=== PATIENT | male | born 1960 | race Caucasian/White ===

== ENCOUNTER → 2018-03-19 | Outpatient (CLI) | payer BC ==
--- NOTE | 2018-03-19 15:53 | RADIOLOGY REPORT (SQ) ---
EXAM DESCRIPTION: KNEE LEFT 3 VIEWS COMPLETED DATE/TIME: 03/19/2018 2:29 pm REASON FOR STUDY: BILATERAL PRIMARY OSTEOARTHRITIS KNEES. MUSCLE TWITCHING M17.0 BILATERAL PRIMARY OSTEOARTHRITIS OF KNEE COMPARISON: None. NUMBER OF VIEWS: Three views. TECHNIQUE: Standing AP, lateral, sunrise view radiographic images acquired of the left knee. LIMITATIONS: None. FINDINGS: MINERALIZATION: Normal. BONES: No acute fracture or dislocation. No worrisome bone lesions. JOINT: Medial compartment joint space narrowing. SOFT TISSUES: No soft tissue swelling. No radio-opaque foreign body. OTHER: No other significant finding. IMPRESSION: Medial compartment joint space narrowing. No significant osteophytes. TECHNICAL DOCUMENTATION: JOB ID: [id number] [email or web address]- All Rights Reserved Reading location - IP/workstation name: [email or web address]
--- NOTE | 2018-03-19 15:54 | RADIOLOGY REPORT (SQ) ---
EXAM DESCRIPTION: KNEE RIGHT 3 VIEWS COMPLETED DATE/TIME: 03/19/2018 2:29 pm REASON FOR STUDY: BILATERAL PRIMARY OSTEOARTHRITIS KNEES. MUSCLE TWITCHING M17.0 BILATERAL PRIMARY OSTEOARTHRITIS OF KNEE COMPARISON: None. NUMBER OF VIEWS: Three views TECHNIQUE: AP standing, lateral, sunrise radiographic images acquired of the right knee. LIMITATIONS: None. FINDINGS: MINERALIZATION: Normal. BONES: No acute fracture or dislocation. No worrisome bone lesions. JOINT: Medial compartment joint space narrowing. SOFT TISSUES: No soft tissue swelling. No radio-opaque foreign body. OTHER: No other significant finding. IMPRESSION: Medial compartment degenerative changes. TECHNICAL DOCUMENTATION: JOB ID: [id number] [email or web address]- All Rights Reserved Reading location - IP/workstation name: [email or web address]
--- NOTE | 2018-03-19 15:55 | RADIOLOGY REPORT (SQ) ---
EXAM DESCRIPTION: L SPINE 2 VIEWS COMPLETED DATE/TIME: 03/19/2018 2:29 pm REASON FOR STUDY: BILATERAL PRIMARY OSTEOARTHRITIS KNEES. MUSCLE TWITCHING M17.0 BILATERAL PRIMARY OSTEOARTHRITIS OF KNEE COMPARISON: None. NUMBER OF VIEWS: Two views. TECHNIQUE: AP and lateral radiographic images acquired of the lumbar spine. LIMITATIONS: None. FINDINGS: MINERALIZATION: Normal. SEGMENTATION: Normal. No transitional anatomy. ALIGNMENT: Normal. VERTEBRAE: Maintained height. No fracture or worrisome bone lesion. DISCS: No significant disc space narrowing. Scattered small osteophytes. POSTERIOR ELEMENTS: Pedicles and facets are intact. No pars defect or posterior arch defects. HARDWARE: None in the spine. PARASPINAL SOFT TISSUES: Normal. PELVIS: Intact as visualized. No fractures or worrisome bone lesions. SI joints intact. OTHER: No other significant finding. IMPRESSION: Minimal degenerative changes. TECHNICAL DOCUMENTATION: JOB ID: [id number] [employer]- All Rights Reserved Reading location - IP/workstation name: [email or web address]
== END ==
LOC: RAD 13:39
PROVIDERS: ATTEND Internal Medicine Geriatric Medicine
DX: M62.831 Muscle spasm of calf (principal); M17.0 Bilateral primary osteoarthritis of knee
CPT/HCPCS: 72100

== ENCOUNTER 2018-10-11 08:20 | Day surgery (SDC) | payer BC ==
[~2018-10-11 08:20] MED LIST: DIPHENHYDRAMINE HCL 50 MG/ML VIAL ONE; EPINEPHRINE INJ 1 MG/10 ML DISP.SYRIN ONE; FLUMAZENIL INJ 0.5 MG/5 ML VIAL ONE; GLUCAGON,HUMAN RECOMB 1 MG INJ ONE; NALOXONE HCL INJ/PF 0.4 MG/1 ML SDV ONE; ONDANSETRON HCL INJ/PF 4 MG/2 ML SDV ONE
[2018-10-11] MEDS: MIDAZOLAM 2 MG/2 ML INJ ONE ×2 (10:23→10:31)
[2018-10-11] MEDS: FENTANYL CITRATE INJ/PF 100 MCG/2 ML AMPUL ONE ×3 (10:25→10:41)
--- NOTE | 2018-10-11 11:21 | Operative Report ---
Nonrecallable Operative Report PREOPERATIVE DIAGNOSIS: screening colo POSTOPERATIVE DIAGNOSIS: screening colo OPERATION: colonoscopy SURGEON: ERIN GONZALEZ ANESTHESIA: Moderate Sedation TISSUE REMOVED OR ALTERED: polyps x2 biopsy. at 65 cm and in cecum COMPLICATIONS: none ESTIMATED BLOOD LOSS: min INTRAOPERATIVE FINDINGS: diverticulosis through ascending colon and transvers colon. min tics in sigmoid PROCEDURE: colonoscopy and biopsy
[2018-10-11 11:53] VITALS: BP 131/77
--- NOTE | 2018-10-11 13:58 | OPERATIVE REPORT E ---
Operative Report NAME: GRAZYNA PEREZ : 1960 AGE: 58Y DATE OF SURGERY: ROOM: PREOPERATIVE DIAGNOSIS: Screening colonoscopy. POSTOPERATIVE DIAGNOSIS: Screening colonoscopy. OPERATIVE PROCEDURE: Colonoscopy under conscious sedation. SURGEON: ERIN GONZALEZ M.D. INDICATIONS FOR PROCEDURE: This is a 58-year-old male with previous history of colonoscopy approximately 13 years ago where he had a number of cecal polyps that were either biopsied or removed. He now returns for a routine screening colonoscopy. PROCEDURE: After appropriate timeout the patient was given IV sedation using Versed and Fentanyl, approximately 2 mg of Versed initially were given, a total of 4 were given throughout the procedure, and 50 mcg of Fentanyl. The patient was then placed in a left lateral decubitus position and after appropriate sedation the Olympus colonoscope was inserted into the rectum to the sigmoid colon. It then traversed up the descending colon to the splenic flexure, the transverse colon to the hepatic flexure, and down to the cecum. It was a relatively easy manipulation. The patient had an adequate prep. Upon reaching the cecum the ileocecal valve was identified as was the appendiceal orifice, and there was 1 small polyp on the ileocecal valve that was biopsied. It appeared to be a hyperplastic polyp. Then we slowly withdrew the scope over the course of 5 to 8 minutes, visualizing the ascending colon which appeared to be normal as was the hepatic flexure. In the transverse colon there were a number of diverticulum, but there was no evidence of any polyps as we traversed through the transverse colon past the splenic flexure that appeared to be normal. The descending colon also had a number of diverticula and then at 65 cm there was a second hyperplastic polyp, which was biopsied. There were a few descending colon diverticula, but very few if any sigmoid colon diverticula. As we exited the colon there were a number of small hemorrhoids that showed no evidence of any bleeding. The patient tolerated the procedure well. Intraoperative findings were 2 polyps, one at 65 cm, one in the cecum, both biopsied, and diffuse diverticulosis. The scope was removed and the patient went to recovery in stable condition. DICTATING PHYSICIAN: ERIN GONZAELZ M.D. [id number] PHY#: [id number] ID: [id number] JOB#: [id number] ACCT: [id number] cc:ERIN GONZALEZ M.D. >
--- NOTE | 2018-10-13 13:24 | OPERATIVE REPORT E ---
Operative Report NAME: GRAZYNA PEREZ : 1960 AGE: 58Y DATE OF SURGERY: 10/11/2018 ROOM: ADDENDUM: The biopsy performed was a cold forceps biopsy. DICTATING PHYSICIAN: ERIN GONZALEZ M.D. [id number] PHY#: [id number] ID: [id number] JOB#: [id number] ACCT: [id number] cc:ERIN GONZALEZ M.D. >
== END 2018-10-11 11:55 | disposition home or self-care (01) ==
LOC: END 08:20
PROVIDERS: ATTEND Surgery
DX: Z12.11 Encounter for screening for malignant neoplasm of colon (principal); K57.30 Diverticulosis of large intestine without perforation or abscess without bleeding; D12.0 Benign neoplasm of cecum; Z86.010 Personal history of colon polyps; E11.9 Type 2 diabetes mellitus without complications; I10 Essential (primary) hypertension; E78.5 Hyperlipidemia, unspecified; Z79.84 Long term (current) use of oral hypoglycemic drugs; Z79.899 Other long term (current) drug therapy; Z01.818 Encounter for other preprocedural examination
CPT/HCPCS: 45380; 82962; 88305 ×2; J2250; J3010; J0171; J1200; J1610; J2310; J2405; J3490

== ENCOUNTER 2019-07-19 22:10 | Inpatient (IN) | payer SELFPAY ==
--- NOTE | 2019-07-19 22:55 | ER Document Report ---
ED General - General Stated Complaint: LEFT SIDE PAIN/VOMITING/DIARRHEA Time Seen by Provider: 07/19/19 22:55 Primary Care Provider: GORDO GANDHI MD [Primary Care Provider] - Follow up as needed TRAVEL OUTSIDE OF THE [place] IN LAST 30 DAYS: No - HPI Patient complains to provider of: abd pain Notes: 58 y/o presenting to ED for evaluation of RLQ abdominal pain worsening over a 2 day time period with some chills but w/o fever he has had nausea w/o vomiting he had 2 loose BM's yesterday but no persistent diarrhea no back pain no testicle pain no blood in urine or dysuria no blood in stool - Related Data Allergies/Adverse Reactions: No Known Allergies Allergy (Verified 10/11/18 08:34) Home Medications: metformin. glimiperide,. phenofibrine Past Medical History - Social History Smoking Status: Never Smoker Chew tobacco use (# tins/day): No Frequency of alcohol use: None Drug Abuse: None Family History: Reviewed & Not Pertinent Patient has suicidal ideation: No Patient has homicidal ideation: No - Past Medical History Cardiac Medical History: Denies: Hx Coronary Artery Disease, Hx Heart Attack, Hx Hypertension Pulmonary Medical History: Denies: Hx Asthma, Hx Bronchitis, Hx COPD, Hx Pneumonia Neurological Medical History: Denies: Hx Cerebrovascular Accident, Hx Seizures Musculoskeletal Medical History: Denies Hx Arthritis - Immunizations Hx Diphtheria, Pertussis, Tetanus Vaccination: Yes Review of Systems - Review of Systems Constitutional: Chills EENT: No symptoms reported Cardiovascular: No symptoms reported Respiratory: No symptoms reported Gastrointestinal: Abdominal pain, Nausea. denies: Vomiting Genitourinary: No symptoms reported Male Genitourinary: No symptoms reported Musculoskeletal: No symptoms reported Skin: No symptoms reported Hematologic/Lymphatic: No symptoms reported Neurological/Psychological: No symptoms reported Physical Exam - Vital signs Vitals: Temp Pulse Resp BP Pulse Ox 98.1 F 81 20 142/86 H 98 07/19/19 22:27 07/19/19 22:27 07/19/19 22:27 07/19/19 22:27 07/19/19 22:27 Interpretation: Normal - General General appearance: Appears well, Alert - HEENT Head: Normocephalic, Atraumatic Eyes: Normal Pupils: PERRL - Respiratory Respiratory status: No respiratory distress Chest status: Nontender Breath sounds: Normal Chest palpation: Normal - Cardiovascular Rhythm: Regular Heart sounds: Normal auscultation Murmur: No - Abdominal Inspection: Normal Distension: No distension Bowel sounds: Normal Tenderness: McBurney's point, Guarding Organomegaly: No organomegaly - Back Back: Normal, Nontender - Extremities General upper extremity: Normal inspection, Nontender, Normal color, Normal ROM, Normal temperature General lower extremity: Normal inspection, Nontender, Normal color, Normal ROM, Normal temperature, Normal weight bearing. No: Terri's sign - Neurological Neuro grossly intact: Yes Cognition: Normal Orientation: AAOx4 [place] Coma Scale Eye Opening: Spontaneous Vania Coma Scale Verbal: Oriented [place] Coma Scale Motor: Obeys Commands [place] Coma Scale Total: 15 Speech: Normal Motor strength normal: LUE, RUE, LLE, RLE Sensory: Normal - Psychological Associated symptoms: Normal affect, Normal mood - Skin Skin Temperature: Warm Skin Moisture: Dry Skin Color: Normal Course - Re-evaluation Re-evalutation: 07/20/19 00:59 RLQ pain on exam [address] obtained to eval for appendicits 07/20/19 01:13 CT w/ free air - perf appendix vs diverticula zosyn ordered surgery consulted - Vital Signs Vital signs: Temp Pulse Resp BP Pulse Ox 99.5 F 71 22 H 177/88 H 91 L 07/19/19 22:55 07/19/19 22:55 07/19/19 22:55 07/20/19 01:01 07/20/19 01:01 - Laboratory Result Diagrams: 07/19/19 23:08 07/19/19 23:08 Laboratory results interpreted by me: 07/19/19 07/19/19 07/19/19 23:08 23:08 23:08 Plt Count 93 L Lymph % (Auto) 7.5 L Seg Neutrophils % 84.1 H Sodium 136.3 L BUN 22 H Creatinine 1.54 H Est GFR ( Amer) 56 L Est GFR (MDRD) Non-Af 47 L Glucose 349 H Lactic Acid 2.5 H Total Bilirubin 4.0 H Direct Bilirubin 2.5 H AST 157 H Urine Protein Urine Glucose (UA) Urine Blood Urine Urobilinogen 07/19/19 23:18 Plt Count Lymph % (Auto) Seg Neutrophils % Sodium BUN Creatinine Est GFR ( Amer) Est GFR (MDRD) Non-Af Glucose Lactic Acid Total Bilirubin Direct Bilirubin AST Urine Protein 100 H Urine Glucose (UA) >=500 H Urine Blood SMALL H Urine Urobilinogen 4.0 H - Diagnostic Test Radiology reviewed: Image reviewed, Reports reviewed Critical Care Note - Critical Care Note Total time excluding time spent on procedures (mins): 36 Comments: perforated viscus in abdomen. impending sepsis. surgical consultation Discharge - Discharge Clinical Impression: Perforated abdominal viscus Condition: Stable Disposition: ADMITTED INPATIENT Admitting Provider: Surgicalist Unit Admitted: OR Referrals: GORDO GANDHI MD [Primary Care Provider] - Follow up as needed
[2019-07-19] MEDS ORDERED: NORMAL SALINE 1000 ML 1,000 ML IV ONE (23:08)
[2019-07-19] MEDS ORDERED: MORPHINE SULFATE 10 MG/ML INJ IV ONE (23:19)
[2019-07-19] MEDS ORDERED: ONDANSETRON HCL INJ/PF 4 MG/2 ML SDV IV ONE (23:19)
[2019-07-19 23:32] LABS: APPEARANCE,URINE CLEAR; BILIRUBIN,URINE NEGATIVE (NEGATIVE); COLOR,URINE YELLOW; GLUCOSE, URINE >=500 mg/dL (NEGATIVE); KETONES,URINE NEGATIVE (NEGATIVE); LEUKOCYTE ESTERASE,URINE NEGATIVE (NEGATIVE); NITRITE,URINE NEGATIVE (NEGATIVE); PROTEIN,URINE 100 mg/dL (NEGATIVE); URINE SPECIFIC GRAVITY 1.022
[2019-07-19 23:35] LABS: ABSOLUTE EOSINOPHILS # (AUTO) 0.1 10^3/uL (0.0-0.6); ABSOLUTE LYMPHOCYTES (AUTO) 0.6 10^3/uL (0.5-4.7); ABSOLUTE MONOCYTES (AUTO) 0.5 10^3/uL (0.1-1.4); ABSOLUTE NEUT (AUTO) 6.6 10^3/uL (1.7-8.2); BASOPHILS % (AUTO) 0.5 % (0-2); EOSINOPHILS % (AUTO) 1.1 % (0-6); HEMOGLOBIN 16.2 g/dL (13.5-17.0); LYMPHOCYTES % (AUTO) 7.5 % (13-45); MEAN CORPUSCULAR HEMOGLOBIN 31.6 pg (27.0-33.4); MEAN CORPUSCULAR HGB CONC 35.2 g/dL (32.0-36.0); MEAN CORPUSCULAR VOLUME 90 fl (80-97); MONOCYTES % (AUTO) 6.8 % (3-13); RED BLOOD COUNT 5.12 10^6/uL (4.35-5.55); SEGMENTED NEUTROPHILS % (AUTO) 84.1 % (42-78); TOTAL CELLS COUNTED % (AUTO) 100 %; WHITE BLOOD COUNT 7.8 10^3/uL (4.0-10.5)
[2019-07-19 23:44] LABS: ALBUMIN 4.2 g/dL (3.5-5.0); ALKALINE PHOSPHATASE 119 U/L (38-126); ANION GAP 13 (5-19); ASPARTATE AMINO TRANSFERASE 157 U/L (17-59); BILIRUBIN,DIRECT 2.5 mg/dL (0.0-0.4); BLOOD UREA NITROGEN 22 mg/dL (7-20); CALCIUM 9.7 mg/dL (8.4-10.2); CARBON DIOXIDE 24 mmol/L (22-30); CHLORIDE 99 mmol/L (98-107); GLUCOSE 349 mg/dL (75-110); POTASSIUM 4.3 mmol/L (3.6-5.0); TOTAL PROTEIN 6.9 g/dL (6.3-8.2)
[2019-07-19 23:52] LABS: PLATELET COUNT 93 10^3/uL (150-450)
[2019-07-20] MEDS ORDERED: NORMAL SALINE 1000 ML 1,000 ML IV ONE (00:04)
[2019-07-20] MEDS ORDERED: MORPHINE SULFATE 10 MG/ML INJ IV ONE (00:58)
[2019-07-20] MEDS ORDERED: PIPERACILLIN/TAZOBACTAM 3.375 GM VIAL IV ONE (01:13)
--- NOTE | 2019-07-20 01:20 | RADIOLOGY REPORT (SQ) ---
EXAM: CT abdomen and pelvis with IV contrast CLINICAL DATA: 58-year-old male with right lower quadrant abdominal pain TECHNICAL DATA: Axial CT imaging of the abdomen and pelvis was performed following the administration of intravenous contrast.. Sagittal and coronal reconstructed images were then performed. The CT study is performed according to ALARA (as low as reasonably achievable) or ALARA/IMAGE GENTLY, with automatic adjustment of mA and/or kV according to patient size. Performed on: 07/20/2019 at 12:36 AM. Comparison: None FINDINGS: Lung bases: The lung bases are clear. There is minimal bibasilar atelectasis and/or fibrosis. Liver: The liver is mildly enlarged and measures 20 cm in craniocaudal dimension. No focal hepatic abnormalities are identified. Liver attenuation is within normal limits. Spleen: The spleen is mildly enlarged and measures 13.4 cm in craniocaudal dimension. No focal splenic abnormalities are identified. Gallbladder and bile duct: The gallbladder is well distended and unremarkable. There is no biliary ductal dilatation. Pancreas: The pancreas is grossly normal in size and configuration. Adrenal Glands:The adrenal glands are normal in size and configuration. Kidneys:The kidneys are normal in size and configuration. There is no evidence of hydronephrosis. There is no evidence of nephrolithiasis. There are several tiny renal hypodensities bilaterally likely representing incidental renal cysts. Stomach: The stomach is moderately distended with fluid. There is a small hiatal hernia. Bowel:The bowel gas pattern is non specific and non obstructive. There is scattered colonic diverticulosis. There is pericolonic inflammation in the right lower quadrant with surrounding edema. There appears to be air within the appendix which appears dilated and partially fluid-filled. Findings could reflect a perforated appendix or perforated diverticulitis. Appendix: See above Free air: There is pneumoperitoneum. Free fluid: There is a small amount of free fluid in the pelvis with extensive mesenteric edema in the right lower quadrant. Vasculature: The aorta is normal in caliber and contour. The inferior vena cava is grossly unremarkable. Lymphadenopathy: No pathologic lymphadenopathy is identified. Bladder: The bladder is well distended and smooth in contour. Reproductive: The prostate gland is grossly within normal limits. Bones: No acute osseous abnormalities are identified. Soft tissues: There are bilateral fat-containing inguinal hernias. There is a tiny fat-containing ventral umbilical hernia. IMPRESSION: 1. Pericolonic inflammation and edema in the right lower quadrant and pneumoperitoneum. Findings may reflect either a ruptured appendix or perforated diverticulitis. 2. Scattered colonic diverticulosis. 3. Hepatosplenomegaly. 4. Bilateral fat-containing inguinal hernias. These critical findings were discussed with Dr. Jordon Zarco on 07/20/2019 at 12:12 AM central time.
[2019-07-20 01:33] LABS: INTERNATIONAL RATION (INR) 1.05; PROTHROMBIN TIME 13.7 SEC (11.4-15.4)
[2019-07-20 01:34] LABS: PARTIAL THROMBOPLASTIN TIME 28.5 SEC (23.5-35.8)
[2019-07-20] MEDS ORDERED: ACETAMINOPHEN 0 MG/0 ML RTUPB IV ONE (02:11)
[2019-07-20] MEDS ORDERED: ACETAMINOPHEN 1,000 MG/100 ML RTUPB IV ONE (02:15)
--- NOTE | 2019-07-20 02:16 | PDOC H&P ---
History of Present Illness Admission Date/PCP: GORDO GANDHI Patient complains of: Right lower quadrant abdominal pain History of Present Illness: GRAZYNA PEREZ is a 58 year old male, with a history of hypertension, type 2 diabetes, mild fatty liver disease, status post liver biopsy with unspecified results 1 year ago, who presents to the emergency room with a 3-day history of right-sided lower abdominal pain, nausea vomiting x1 3 days ago, diarrhea with no blood identified. A CT scan of the abdomen pelvis was done revealing a possible appendicitis perforation versus right colon diverticulitis and perforation. He reports of feeling bloated for the past 3 days. His blood work also demonstrated hyperbilirubinemia with normal liver enzymes otherwise except for slight elevated AST. According to the patient, he volunteered for an experimental drug safety study 2 years ago and underwent a liver ultrasound which demonstrated an enlarged liver. As part of the study, he also underwent a liver biopsy which demonstrated fatty liver disease without other significant findings: Therefore, he was excluded from the study. He admits to occasional heavy drinking in the past, he denies blood transfusion, IV drug abuse, family history of liver disease, or past liver disease history. Past Medical History Cardiac Medical History: Denies: Coronary Artery Disease, Myocardial Infarction, Hypertension Pulmonary Medical History: Denies: Asthma, Bronchitis, Chronic Obstructive Pulmonary Disease (COPD), Pneumonia Neurological Medical History: Denies: Seizures Endocrine Medical History: Reports: Diabetes Mellitus Type 2 Musculoskeltal Medical History: Denies: Arthritis Hematology: Denies: Anemia Social History Smoking Status: Never Smoker Electronic Cigarette use?: No Family History Family History: Reviewed & Not Pertinent Parental Family History Reviewed: No Children Family History Reviewed: No Sibling(s) Family History Reviewed.: No Medication/Allergy Home Medications: Fenofibrate 54 mg PO QHS 10/10/18 Glimepiride [Amaryl 1 mg Tablet] 2 mg PO DAILY 10/10/18 Losartan Potassium [Cozaar 25 mg Tablet] 25 mg PO DAILY 10/10/18 Metformin HCl 4 tab PO DAILY 10/10/18 Multivit-Min/FA/Lycopen/Lutein [Centrum Silver Men Tablet] 1 each PO DAILY 10/11/18 Semaglutide [Ozempic] 0.25 mg SQ .QWEEKLY 10/11/18 Allergies/Adverse Reactions: No Known Allergies Allergy (Verified 10/11/18 08:34) Physical Exam Vital Signs: Temp Pulse Resp BP Pulse Ox 102.8 F H 71 22 H 177/88 H 91 L 07/20/19 01:37 07/19/19 22:55 07/19/19 22:55 07/20/19 01:01 07/20/19 01:01 Intake & Output 07/18/19 07/19/19 07/20/19 06:59 06:59 06:59 Intake Total 1999 Balance 1999 Weight 115 kg General appearance: PRESENT: cooperative, mild distress, obese Head exam: PRESENT: atraumatic Eye exam: PRESENT: EOMI, scleral icterus Mouth exam: PRESENT: neck supple Respiratory exam: PRESENT: clear to auscultation [place] Cardiovascular exam: PRESENT: RRR GI/Abdominal exam: PRESENT: distended, guarding - Right lower quadrant, hypo active bowel sounds, rebound - Right lower quadrant, rigid - Diffusely, tenderness - Right lower quadrant, localized with guarding and rebound Rectal exam: PRESENT: deferred Extremities exam: PRESENT: full ROM Musculoskeletal exam: PRESENT: full ROM Neurological exam: PRESENT: awake, oriented to person, oriented to place Psychiatric exam: PRESENT: appropriate affect Skin exam: PRESENT: warm Results Laboratory Results: 07/19/19 23:08 07/19/19 23:08 07/19/19 07/19/19 07/19/19 23:08 23:08 23:08 WBC 7.8 RBC 5.12 Hgb 16.2 Hct 46.0 MCV 90 MCH 31.6 MCHC 35.2 RDW 13.0 Plt Count 93 L Seg Neutrophils % 84.1 H Sodium 136.3 L Potassium 4.3 Chloride 99 Carbon Dioxide 24 Anion Gap 13 BUN 22 H Creatinine 1.54 H Est GFR ( Amer) 56 L Glucose 349 H Lactic Acid 2.5 H Calcium 9.7 Total Bilirubin 4.0 H AST 157 H Alkaline Phosphatase 119 Total Protein 6.9 Albumin 4.2 Lipase 77.1 Urine Color Urine Appearance Urine pH Ur Specific [place] Urine Protein Urine Glucose (UA) Urine Ketones Urine Blood Urine Nitrite Ur Leukocyte Esterase Urine WBC (Auto) Urine RBC (Auto) 07/19/19 23:18 WBC RBC Hgb Hct MCV MCH MCHC RDW Plt Count Seg Neutrophils % Sodium Potassium Chloride Carbon Dioxide Anion Gap BUN Creatinine Est GFR ( Amer) Glucose Lactic Acid Calcium Total Bilirubin AST Alkaline Phosphatase Total Protein Albumin Lipase Urine Color YELLOW Urine Appearance CLEAR Urine pH 5.0 Ur Specific [place] 1.022 Urine Protein 100 H Urine Glucose (UA) >=500 H Urine Ketones NEGATIVE Urine Blood SMALL H Urine Nitrite NEGATIVE Ur Leukocyte Esterase NEGATIVE Urine WBC (Auto) 1 Urine RBC (Auto) 0 Impressions: Abdomen/Pelvis CT 07/20/19 00:00 IMPRESSION: 1. Pericolonic inflammation and edema in the right lower quadrant and pneumoperitoneum. Findings may reflect either a ruptured appendix or perforated diverticulitis. 2. Scattered colonic diverticulosis. 3. Hepatosplenomegaly. 4. Bilateral fat-containing inguinal hernias. These critical findings were discussed with Dr. Jordon Zarco on 07/20/2019 at 12:12 AM central time. Assessment & Plan - Diagnosis (1) Right lower quadrant abdominal pain Is this a current diagnosis for this admission?: Yes (2) Acquired hyperbilirubinemia Is this a current diagnosis for this admission?: Yes (3) Perforated abdominal viscus Is this a current diagnosis for this admission?: Yes - Plan Summary Plan Summary: Assessment: Right lower quadrant pain for 3 days with nausea, vomiting, and diarrhea Patient has become febrile while in the emergency room, with a temperature of 102.8 Abdomen diffusely distended and point tenderness in the right lower quadrant CT scan abdomen pelvis significant for pneumoperitoneum with inflammatory changes right lower quadrant, perforated acute appendicitis versus acute perforated cecal diverticulitis according to the radiology report White blood cell count within the normal limits Slight elevation of BUN and creatinine (22/1.5, respectively) most likely reflecting dehydration Elevated lactic acid 2.5 as per sepsis Hyperbilirubinemia 4.0, unknown cause as per previous liver biopsy done 2 years ago (diagnosis of fatty liver) Also, hepatosplenomegaly identified on CAT scan without significant abdominal findings, normal gallbladder and liver ducts Plan: Aggressive IV hydration (total 3 L with normal saline given) IV antibiotics Zosyn Plan laparoscopy with possible appendectomy, possible open, possible laparotomy, possible resection Procedure, risks, complications, benefits, alternatives, discussed with the patient, he understands all the above, his questions answered, and he decides to proceed
[2019-07-20] MEDS ORDERED: FENTANYL CITRATE INJ/PF 250 MCG/5 ML AMPULE ONE (02:24)
[2019-07-20] MEDS ORDERED: MIDAZOLAM 2 MG/2 ML INJ ONE (02:24)
[2019-07-20] MEDS ORDERED: ONDANSETRON HCL INJ/PF 4 MG/2 ML SDV ONE (02:25)
[2019-07-20] MEDS ORDERED: MORPHINE SULFATE 10 MG/ML INJ ONE (02:25)
[2019-07-20] MEDS ORDERED: EPHEDRINE SULFATE INJ 50 MG/1 ML AMPULE ONE (02:25)
[2019-07-20] MEDS ORDERED: DEXAMETHASONE SOD PHOSPHATE INJ 4 MG/1 ML VIAL ONE (02:25)
[2019-07-20] MEDS ORDERED: PROPOFOL INJ 200 MG/20 ML VIAL IV ONE (02:25)
[2019-07-20] MEDS ORDERED: BUPIVACAINE HCL 0.5 % INJ/PF 30 ML SDV ONE (02:47)
[2019-07-20] MEDS ORDERED: SUGAMMADEX SODIUM 200 MG/2 ML SDV IV ONE (04:23)
[2019-07-20] MEDS ORDERED: ONDANSETRON HCL INJ/PF 4 MG/2 ML SDV IV PRN (04:44)
[2019-07-20] MEDS ORDERED: DIPHENHYDRAMINE HCL 50 MG/ML VIAL IV PRN (04:44)
[2019-07-20] MEDS ORDERED: OXYCODONE-ACETAMINOPHEN 5-325 MG TABLET PO PRN ×2 (04:44)
[2019-07-20] MEDS ORDERED: MEPERIDINE HCL/PF INJ 25 MG/1 ML DISP.SYRIN IV PRN (04:44)
[2019-07-20] MEDS ORDERED: PROMETHAZINE HCL INJ 25 MG/1 ML VIAL IV PRN ×2 (04:44)
[2019-07-20] MEDS ORDERED: FENTANYL CITRATE INJ/PF 100 MCG/2 ML AMPUL IV PRN ×4 (04:44→07:30)
[2019-07-20] MEDS ORDERED: MORPHINE SULFATE 10 MG/ML INJ IV PRN ×2 (04:44→05:57)
[2019-07-20] MEDS ORDERED: SUCCINYLCHOLINE CHLORIDE INJ 200 MG/10 ML VIAL ONE (05:00)
[2019-07-20] MEDS ORDERED: ROCURONIUM BROMIDE INJ 50 MG/5 ML VIAL IV ONE (05:00)
--- NOTE | 2019-07-20 05:50 | Operative Report ---
Operative Report DATE OF SURGERY: 07/20/19 PREOPERATIVE DIAGNOSIS: Pneumoperitoneum, peritonitis, leukocytosis POSTOPERATIVE DIAGNOSIS: Same, perforated gangrenous acute appendicitis OPERATION: Diagnostic laparoscopy, laparotomy, open appendectomy, application of wound VAC SURGEON: SARAH BERGMAN ANESTHESIA: GA - Loss 2 mL's of 0.5% Marcaine TISSUE REMOVED OR ALTERED: Gangrenous perforated appendix COMPLICATIONS: None ESTIMATED BLOOD LOSS: 50 mL's INTRAOPERATIVE FINDINGS: Diffuse peritonitis, gangrenous perforated retrocecal appendicitis PROCEDURE: The procedure was done in the operating room, the patient was placed in supine position, general anesthesia induced by endotracheal intubation, Denise catheter was inserted together with nasogastric tube, and the abdomen was prepped and draped in usual fashion. A small incision was made just above the umbilicus, the skin was tented with towel clips and a 5 mm port with Optiview adapter and scope was inserted through the abdominal wall into the peritoneal cavity. A pneumoperitoneum was easily obtained, following this the scope was reinserted through the port into the peritoneal cavity. Examination of the peritoneal cavity revealed a large amount of inflammation with fibrinous exudate throughout the anterior abdominal wall, the small bowel, and covering the liver as well. Due to large amount of inflammation a decision was made to abort the laparoscopic portion of the procedure and to proceed with laparotomy. A long midline incision was made from just above the umbilicus down to the symphysis pubis, deepened through the abdominal subcutaneous fat, the linea alba was divided with Bovie, and the peritoneal cavity was entered. Intraperitoneal fluid was noted and cultures were obtained for aerobic anaerobic and Gram stain. Large inflammatory changes were noted in the right lower quadrant. A Bookwalter retractor was placed to expose the surgical field, the terminal ileum was identified as well as the cecum. The appendix was found to be inflamed, edematous, erythematous, and gangrenous, and perforated. The right colon was elevated with exposure of the base of the appendix. The mesoappendix was divided with LigaSure, the patient's appendix was then grasped with a [place] clamp, stretched, and divided with a TA 30 mm stapler with a green load at the base. The specimen was removed from the surgical field and sent to pathology. The peritoneal cavity was then inspected no other lesions or abnormalities were noted. About 10 L of warm normal saline was used for irrigation in all 4 quadrants of the abdomen. The Bookwalter retractors were removed as well as all the laparotomy pads and a count was correct x3. Two round 15 Georgian Jt drains were inserted through the right the left main respectively, one in the pelvis the other one in the right lower quadrant, secured to the skin with nylon suture, and connected to bulb suction. The abdominal wall was closed with running looped PDS suture. The subcutaneous tissue was irrigated. The skin edges were left open and a wound VAC adams sponge was applied on the wound. This was covered by Tegaderm, an opening was made on the Tegaderm followed by application of the vacuum suction on it, this was connected to the vacuum device with good negative pressure, -125 mmHg. The patient tolerated the procedure well, was extubated, and transferred to the recovery room in satisfactory conditions.
[2019-07-20] MEDS ORDERED: DEXTROSE 40% GEL 15 GM TUBE PO PRN ×6 (05:52→07:37)
[2019-07-20] MEDS ORDERED: GLUCAGON,HUMAN RECOMB 1 MG INJ SUBCUT PRN (05:52)
[2019-07-20] MEDS ORDERED: DEXTROSE 50%-WATER 25 GM/50 ML DISP.SYRIN IV PRN ×6 (05:52→07:37)
[2019-07-20] MEDS ORDERED: NORMAL SALINE 1000 ML 1,000 ML IV PRN (05:57)
[2019-07-20] MEDS ORDERED: PIPERACILLIN/TAZOBACTAM 3.375 GM VIAL IV SCH (06:00)
[2019-07-20] MEDS ORDERED: PHARMACY COMMUNICATION ORDER MC NR (06:15)
[2019-07-20] MEDS ORDERED: INFLUENZA QUAD (6MOS+) 2019-20 VAC 0.5 ML SYR IM ONE (06:46)
[2019-07-20] MEDS: ACETAMINOPHEN 1,000 MG/100 ML RTUPB IV SCH ×3 (07:08→17:03)
[2019-07-20] MEDS ORDERED: GLUCAGON,HUMAN RECOMB 1 MG INJ IM PRN ×2 (07:28→07:37)
[2019-07-20] MEDS ORDERED: FENTANYL CITRATE INJ/PF 100 MCG/2 ML AMPUL IV ONE ×2 (07:30→08:30)
[2019-07-20] MEDS ORDERED: METHOCARBAMOL 500 MG in DEXTROSE 5%-WATER 50 ML IV SCH (08:00)
[2019-07-20] MEDS: RINGERS SOLUTION,LACTATED 1,000 ML IV PRN ×3 (08:21→23:17)
[2019-07-20] MEDS: INSULIN LISPRO 100 UNIT/ML 3 ML VIAL SUBCUT SCH ×5 (08:31→21:35)
[2019-07-20] MEDS: PIPERACILLIN SODIUM/TAZOBACTAM 3.375 GM in NORMAL SALINE 100 ML IV SCH ×3 (09:21→21:15)
[2019-07-20] MEDS: METHOCARBAMOL INJ/PF 1000 MG/10 ML SDV IV SCH ×3 (09:22→21:16)
--- NOTE | 2019-07-20 09:52 | EKG REPORT ---
SEVERITY:- BORDERLINE ECG - SINUS TACHYCARDIA PROBABLE LEFT ATRIAL ABNORMALITY RIGHT AXIS DEVIATION : Confirmed by: Montse Cabrera MD 20-Jul-2019 09:52:18
[2019-07-20] MEDS ORDERED: FAMOTIDINE INJ/PF 20 MG/2 ML SDV IV SCH (10:00)
--- NOTE | 2019-07-20 14:34 | PDOC CONSULTATION ---
Consultation Consult Date: 07/20/19 Attending physician:: SARAH BERGMAN Provider Consulted: ANGELITA RUBY Consult reason:: Post-operative management of peritonitis, diabetes with hyperglycemia History of Present Illness Admission Date/PCP: 07/20/19 01:31 GORDO HIRAM Patient complains of: Abdominal pain, found to have ruptured appendix. Went to OR. Post-operative pain, hyperglycemia and hypertension. History of Present Illness: GRAZYNA PEREZ is a 58 year old male with T2 non-insulin requiring presented with 3-4 days of dull low abdominal pain. Had 3-4 days of nausea. Presented to ED and workup revealed perforated viscous in RLQ. Went to OR for laprosocopic exploration but inflammatory changes were severe enough to warrant transition to exploratory open laparotomy. Had difficult intubation with grade IV view using a #5 blade glidesope after 3-4 attempts at DL and smaller scopes. Total fluids 2200, EBL: 50 ml, UOP: 950 cc. Denies chest pain, dyspnea prior to surgery. No RIVERO No fever or chills Past Medical History Cardiac Medical History: Reports: None, Congestive Heart Failure, Peripheral Vascular Disease Denies: Coronary Artery Disease, Myocardial Infarction, Hypertension Pulmonary Medical History: Reports: Other Denies: Asthma, Bronchitis, Chronic Obstructive Pulmonary Disease (COPD), Intubation, Pneumonia, Respiratory Failure EENT Medical History: Reports: None Neurological Medical History: Reports: None Denies: Seizures Endocrine Medical History: Reports: Diabetes Mellitus Type 2, Other - Thyroid cysts, hemorrhagic Renal/ Medical History: Reports: None Malignancy Medical History: Reports: None GI Medical History: Reports: Other - MEJIA. Had been a part of experimental study. Not ETOH related Denies: Crohn's Disease, Diverticulitis, Hiatal Hernia, Peptic Ulcer Disease, Ulcerative Colitis Musculoskeltal Medical History: Denies: Arthritis Psychiatric Medical History: Reports: None Denies: Alcohol Dependency, Substance Abuse, Tobacco Dependency Traumatic Medical History: Denies: None Hematology: Denies: None, Anemia Infectious Medical History: Denies: None Past Surgical History Past Surgical History: Reports: Appendectomy - this admission, Other - Thyroid cyst removl Denies: Thyroidectomy Social History Information Source: Patient Lives with: Spouse/Significant other Smoking Status: Never Smoker Electronic Cigarette use?: No Frequency of Alcohol Use: Rare Hx Recreational Drug Use: No Drugs: None Hx Prescription Drug Abuse: No Past Social History Note: Works as locum respiratory therapist - [employer] Resuscitation Status: Full Code Family History Family History: CAD - Father had MD at age of 30 Parental Family History Reviewed: Yes Children Family History Reviewed: No Sibling(s) Family History Reviewed.: Yes Medication/Allergy Home Medications: Fenofibrate 54mg Tab 54 mg PO DAILY 07/20/19 Glimepiride [Amaryl 4 mg Tablet] 4 mg PO DAILY 07/20/19 Metformin HCl [Metformin HCl ER] 2,000 mg PO DAILY 07/20/19 Sildenafil Citrate [Revatio 20 mg Tablet] 60 mg PO .1 HOUR AC SEX PRN 07/20/19 Allergies/Adverse Reactions: No Known Allergies Allergy (Verified 10/11/18 08:34) Review of Systems All systems: as per PMH Constitutional: PRESENT: as per HPI Eyes: ABSENT: visual disturbances Ears: ABSENT: hearing changes Nose, Mouth, and Throat: PRESENT: sore throat. ABSENT: headache(s) Breasts: ABSENT: as per HPI, other Cardiovascular: PRESENT: as per HPI. ABSENT: chest pain, dyspnea on exertion, edema, palpitations Respiratory: PRESENT: as per HPI. ABSENT: dyspnea, hemoptysis Gastrointestinal: PRESENT: as per HPI Genitourinary: ABSENT: difficulty urinating Musculoskeletal: ABSENT: muscle weakness Integumentary: ABSENT: rash, wounds Neurological: ABSENT: abnormal gait, abnormal speech, confusion, dizziness, focal weakness, syncope Endocrine: PRESENT: as per HPI - Hyperglycemia post operatively. Last known HbA1c 6.8 Hematologic/Lymphatic: ABSENT: easy bleeding Physical Exam Vital Signs: Temp Pulse Resp BP Pulse Ox 99.1 F 78 24 H 165/91 H 96 07/20/19 08:00 07/20/19 10:00 07/20/19 10:00 07/20/19 10:00 07/20/19 10:00 Intake & Output 07/19/19 07/20/19 07/21/19 06:59 06:59 06:59 Intake Total 79901 100 Output Total 98916 650 Balance 2189 -550 Weight 116.2 kg Physical Exam: Pleasant, non-toxic, ill, nad. AA&OX3 General appearance: PRESENT: no acute distress, cooperative, well-developed, well-nourished Head exam: PRESENT: atraumatic, normocephalic Eye exam: PRESENT: conjunctiva pink, EOMI, PERRLA. ABSENT: conjunctival injection, nystagmus, scleral icterus Ear exam: PRESENT: other - Bilateral diagonal creases consistent with Mauricio's sign Mouth exam: PRESENT: dry mucosa Throat exam: PRESENT: post pharyngeal erythema - Mild. No abrasion or bleeding. ABSENT: tonsillar exudate Neck exam: PRESENT: full ROM, other - No stridor, slightly hoarse. ABSENT: carotid bruit, JVD, lymphadenopathy, tenderness, thyromegaly, tracheal deviation Respiratory exam: PRESENT: unlabored. ABSENT: accessory muscle use, clear to auscultation emerson, tachypnea Cardiovascular exam: PRESENT: RRR, +S1, +S2. ABSENT: rubs Pulses: PRESENT: normal carotid pulses, +2 pedal pulses bilateral Vascular exam: PRESENT: normal capillary refill GI/Abdominal exam: PRESENT: diminished bowel sounds. ABSENT: ascites, distended, firm, guarding, Weller's sign, organolmegaly, rebound, rigid Additonal comments: Incision clean and dry Rectal exam: PRESENT: deferred Gentrourinary exam: PRESENT: indwelling catheter Extremities exam: ABSENT: joint swelling, pedal edema Musculoskeletal exam: PRESENT: ambulatory, full ROM, normal inspection. ABSENT: deformity, dislocation, tenderness Neurological exam: PRESENT: alert, awake, oriented to person, oriented to place, oriented to time, oriented to situation, CN II-XII grossly intact, normal gait. ABSENT: motor sensory deficit, aphasic Psychiatric exam: PRESENT: appropriate affect. ABSENT: agitated, anxious Focused psych exam: ABSENT: psychomotor agitation, restlessness Skin exam: PRESENT: dry, intact, normal color. ABSENT: cyanosis, erythema, jaundice, mottled, pallor, petechiae, urticaria, vesicles Results Laboratory Results: 07/19/19 23:08 07/19/19 23:08 07/19/19 07/19/19 07/19/19 23:08 23:08 23:08 WBC 7.8 RBC 5.12 Hgb 16.2 Hct 46.0 MCV 90 MCH 31.6 MCHC 35.2 RDW 13.0 Plt Count 93 L Seg Neutrophils % 84.1 H Sodium 136.3 L Potassium 4.3 Chloride 99 Carbon Dioxide 24 Anion Gap 13 BUN 22 H Creatinine 1.54 H Est GFR ( Amer) 56 L Glucose 349 H Lactic Acid 2.5 H Calcium 9.7 Total Bilirubin 4.0 H GGT AST 157 H Alkaline Phosphatase 119 Total Protein 6.9 Albumin 4.2 Lipase 77.1 Urine Color Urine Appearance Urine pH Ur Specific [place] Urine Protein Urine Glucose (UA) Urine Ketones Urine Blood Urine Nitrite Ur Leukocyte Esterase Urine WBC (Auto) Urine RBC (Auto) Blood Type Antibody Screen 07/19/19 07/20/19 07/20/19 23:18 01:32 07:10 WBC RBC Hgb Hct MCV MCH MCHC RDW Plt Count Seg Neutrophils % Sodium Potassium Chloride Carbon Dioxide Anion Gap BUN Creatinine Est GFR ( Amer) Glucose Lactic Acid 2.9 H Calcium Total Bilirubin GGT AST Alkaline Phosphatase Total Protein Albumin Lipase Urine Color YELLOW Urine Appearance CLEAR Urine pH 5.0 Ur Specific [place] 1.022 Urine Protein 100 H Urine Glucose (UA) >=500 H Urine Ketones NEGATIVE Urine Blood SMALL H Urine Nitrite NEGATIVE Ur Leukocyte Esterase NEGATIVE Urine WBC (Auto) 1 Urine RBC (Auto) 0 Blood Type O POSITIVE Antibody Screen NEGATIVE 07/20/19 10:02 WBC RBC Hgb Hct MCV MCH MCHC RDW Plt Count Seg Neutrophils % Sodium Potassium Chloride Carbon Dioxide Anion Gap BUN Creatinine Est GFR ( Amer) Glucose Lactic Acid Calcium Total Bilirubin GGT 244 H AST Alkaline Phosphatase Total Protein Albumin Lipase Urine Color Urine Appearance Urine pH Ur Specific [place] Urine Protein Urine Glucose (UA) Urine Ketones Urine Blood Urine Nitrite Ur Leukocyte Esterase Urine WBC (Auto) Urine RBC (Auto) Blood Type Antibody Screen Labs- All tests 24 hr 07/19/19 07/19/19 07/19/19 23:08 23:08 23:08 WBC 7.8 RBC 5.12 Hgb 16.2 Hct 46.0 MCV 90 MCH 31.6 MCHC 35.2 RDW 13.0 Plt Count 93 L Lymph % (Auto) 7.5 L [place] % (Auto) 6.8 Eos % (Auto) 1.1 Baso % (Auto) 0.5 Absolute Neuts (auto) 6.6 Absolute Lymphs (auto) 0.6 Absolute Monos (auto) 0.5 Absolute Eos (auto) 0.1 Absolute Basos (auto) 0.0 Seg Neutrophils % 84.1 H PT INR APTT Sodium 136.3 L Potassium 4.3 Chloride 99 Carbon Dioxide 24 Anion Gap 13 BUN 22 H Creatinine 1.54 H Est GFR ( Amer) 56 L Est GFR (MDRD) Non-Af 47 L Glucose 349 H POC Glucose Lactic Acid 2.5 H Calcium 9.7 Total Bilirubin 4.0 H Direct Bilirubin 2.5 H Neonat Total Bilirubin Not Reportable Neonat Direct Bilirubin Not Reportable Neonat Indirect Bili Not Reportable GGT AST 157 H ALT 161 Alkaline Phosphatase 119 Total Protein 6.9 Albumin 4.2 Lipase 77.1 Urine Color Urine Appearance Urine pH Ur Specific [place] Urine Protein Urine Glucose (UA) Urine Ketones Urine Blood Urine Nitrite Urine Bilirubin Urine Urobilinogen Ur Leukocyte Esterase Urine WBC (Auto) Urine RBC (Auto) Urine Ascorbic Acid Blood Type Antibody Screen 07/19/19 07/19/19 07/20/19 23:08 23:18 01:32 WBC RBC Hgb Hct MCV MCH MCHC RDW Plt Count Lymph % (Auto) [place] % (Auto) Eos % (Auto) Baso % (Auto) Absolute Neuts (auto) Absolute Lymphs (auto) Absolute Monos (auto) Absolute Eos (auto) Absolute Basos (auto) Seg Neutrophils % PT 13.7 INR 1.05 APTT 28.5 Sodium Potassium Chloride Carbon Dioxide Anion Gap BUN Creatinine Est GFR ( Amer) Est GFR (MDRD) Non-Af Glucose POC Glucose Lactic Acid Calcium Total Bilirubin Direct Bilirubin Neonat Total Bilirubin Neonat Direct Bilirubin Neonat Indirect Bili GGT AST ALT Alkaline Phosphatase Total Protein Albumin Lipase Urine Color YELLOW Urine Appearance CLEAR Urine pH 5.0 Ur Specific [place] 1.022 Urine Protein 100 H Urine Glucose (UA) >=500 H Urine Ketones NEGATIVE Urine Blood SMALL H Urine Nitrite NEGATIVE Urine Bilirubin NEGATIVE Urine Urobilinogen 4.0 H Ur Leukocyte Esterase NEGATIVE Urine WBC (Auto) 1 Urine RBC (Auto) 0 Urine Ascorbic Acid NEGATIVE Blood Type O POSITIVE Antibody Screen NEGATIVE 07/20/19 07/20/19 07/20/19 02:34 06:33 07:10 WBC RBC Hgb Hct MCV MCH MCHC RDW Plt Count Lymph % (Auto) [place] % (Auto) Eos % (Auto) Baso % (Auto) Absolute Neuts (auto) Absolute Lymphs (auto) Absolute Monos (auto) Absolute Eos (auto) Absolute Basos (auto) Seg Neutrophils % PT INR APTT Sodium Potassium Chloride Carbon Dioxide Anion Gap BUN Creatinine Est GFR ( Amer) Est GFR (MDRD) Non-Af Glucose POC Glucose 269 H 315 H Lactic Acid 2.9 H Calcium Total Bilirubin Direct Bilirubin Neonat Total Bilirubin Neonat Direct Bilirubin Neonat Indirect Bili GGT AST ALT Alkaline Phosphatase Total Protein Albumin Lipase Urine Color Urine Appearance Urine pH Ur Specific [place] Urine Protein Urine Glucose (UA) Urine Ketones Urine Blood Urine Nitrite Urine Bilirubin Urine Urobilinogen Ur Leukocyte Esterase Urine WBC (Auto) Urine RBC (Auto) Urine Ascorbic Acid Blood Type Antibody Screen 07/20/19 07/20/19 07/20/19 08:27 09:42 10:02 WBC RBC Hgb Hct MCV MCH MCHC RDW Plt Count Lymph % (Auto) [place] % (Auto) Eos % (Auto) Baso % (Auto) Absolute Neuts (auto) Absolute Lymphs (auto) Absolute Monos (auto) Absolute Eos (auto) Absolute Basos (auto) Seg Neutrophils % PT INR APTT Sodium Potassium Chloride Carbon Dioxide Anion Gap BUN Creatinine Est GFR ( Amer) Est GFR (MDRD) Non-Af Glucose POC Glucose 258 H 268 H Lactic Acid Calcium Total Bilirubin Direct Bilirubin Neonat Total Bilirubin Neonat Direct Bilirubin Neonat Indirect Bili GGT 244 H AST ALT Alkaline Phosphatase Total Protein Albumin Lipase Urine Color Urine Appearance Urine pH Ur Specific [place] Urine Protein Urine Glucose (UA) Urine Ketones Urine Blood Urine Nitrite Urine Bilirubin Urine Urobilinogen Ur Leukocyte Esterase Urine WBC (Auto) Urine RBC (Auto) Urine Ascorbic Acid Blood Type Antibody Screen 07/20/19 07/20/19 10:02 12:00 WBC RBC Hgb Hct MCV MCH MCHC RDW Plt Count Lymph % (Auto) [place] % (Auto) Eos % (Auto) Baso % (Auto) Absolute Neuts (auto) Absolute Lymphs (auto) Absolute Monos (auto) Absolute Eos (auto) Absolute Basos (auto) Seg Neutrophils % PT INR APTT Sodium Potassium Chloride Carbon Dioxide Anion Gap BUN Creatinine Est GFR ( Amer) Est GFR (MDRD) Non-Af Glucose POC Glucose 249 H Lactic Acid 2.9 H Calcium Total Bilirubin Direct Bilirubin Neonat Total Bilirubin Neonat Direct Bilirubin Neonat Indirect Bili GGT AST ALT Alkaline Phosphatase Total Protein Albumin Lipase Urine Color Urine Appearance Urine pH Ur Specific [place] Urine Protein Urine Glucose (UA) Urine Ketones Urine Blood Urine Nitrite Urine Bilirubin Urine Urobilinogen Ur Leukocyte Esterase Urine WBC (Auto) Urine RBC (Auto) Urine Ascorbic Acid Blood Type Antibody Screen Impressions: Abdomen/Pelvis CT 11/14/19 00:00 IMPRESSION: 1. Pericolonic inflammation and edema in the right lower quadrant and pneumoperitoneum. Findings may reflect either a ruptured appendix or perforated diverticulitis. 2. Scattered colonic diverticulosis. 3. Hepatosplenomegaly. 4. Bilateral fat-containing inguinal hernias. These critical findings were discussed with Dr. Jordon Zarco on 07/20/2019 at 12:12 AM central time. Status: Imported from PACS Assessment & Plan - Diagnosis (1) Acute peritonitis Is this a current diagnosis for this admission?: Yes (2) Post-operative state Is this a current diagnosis for this admission?: Yes (3) Hyperglycemia, drug-induced Is this a current diagnosis for this admission?: Yes (4) Postoperative abdominal pain Is this a current diagnosis for this admission?: Yes (5) Hyperglycemia due to type 2 diabetes mellitus Qualifiers: Diabetes mellitus buttermaker continuous churn insulin use: without buttermaker continuous churn use Qualified Code(s): E11.65 - Type 2 diabetes mellitus with hyperglycemia Is this a current diagnosis for this admission?: Yes (6) Difficult airway for intubation Qualifiers: Encounter type: initial encounter Qualified Code(s): T88.4XXA - Failed or difficult intubation, initial encounter Is this a current diagnosis for this admission?: Yes (7) Postoperative hypertension Is this a current diagnosis for this admission?: Yes Plan: Seconday to pain and post-operative state (8) Type 2 diabetes mellitus Qualifiers: Diabetes mellitus mcc insulin use: without buttermaker continuous churn use Diabetes m ellitus complication status: without complication Qualified Code(s): E11.9 - Type 2 diabetes mellitus without complications Is this a current diagnosis for this admission?: Yes (9) Family history of premature CAD Is this a current diagnosis for this admission?: Yes (10) Bilateral inguinal hernia (BIH) Qualifiers: Obstruction and gangrene presence: without obstruction or gangrene Recurrence: not specified as recurrent Qualified Code(s): K40.20 - Bilateral inguinal hernia, without obstruction or gangrene, not specified as recurrent Is this a current diagnosis for this admission?: Yes Plan: NO active issues. Incidental finding on CT scan of pelvis - Time Time Spent: 50 to 70 Minutes Total Critical Time (Minutes): 65 Medications reviewed and adjusted accordingly: Yes Anticipated discharge: Home Within: within 48 hours - Inpatient Certification Medical Necessity: Significant Comorbidiites Make Outpatient Treatment Too Risky, Need For IV Fluids, Need for IV Antibiotics, Need for Surgery, Risk of Complication if Not Cared For in Hospital Post Hospital Care: D/C [employer] Documentation - Plan Summary Plan Summary: Continue to monitor patient in ICU Follow labs Patient has bilateral ear creases with consistent with Mauricio's sign. Given his strong FH, will screen with troponin and ECG Treat pain, add Robaxin Treat hyperglycemia. Patient was given steroid intraoperatively. Expectant management DC moe Watch for worsening infection See orders Hypertension improved with pain control Notified patient of difficult airway. Encouraged medical alert evan Up dated and patient
[2019-07-20] MEDS ORDERED: INSULIN GLARGINE,HUM.REC.ANLOG 1,000 UNIT/10 ML VIAL SUBCUT SCH (16:15)
[2019-07-20] MEDS ORDERED: INSULIN GLARGINE,HUM.REC.ANLOG 1,000 UNIT/10 ML VIAL (PYX) SUBCUT ONE ×2 (16:30→18:15)
[2019-07-20] MEDS ORDERED: RINGERS SOLUTION,LACTATED 1,000 ML IV ONE (16:57)
[2019-07-20] MEDS: ENOXAPARIN SODIUM INJ 40 MG/0.4 ML DISP.SYRIN SUBCUT SCH (17:03)
[2019-07-20] MEDS: BENZOCAINE/MENTHOL SORE THROAT LOZENGE BUCCAL PRN ×2 (17:18→20:46)
--- NOTE | 2019-07-20 20:17 | EKG REPORT ---
SEVERITY:- ABNORMAL ECG - SINUS RHYTHM PROBABLE INFERIOR INFARCT, AGE INDETERMINATE CONSIDER POSTERIOR WALL INVOLVEMENT : Confirmed by: Montse Cabrera MD 20-Jul-2019 20:16:25
[2019-07-20] MEDS: FENTANYL CITRATE INJ/PF 100 MCG/2 ML AMPUL IV PRN (20:55)
[2019-07-21] MEDS: ACETAMINOPHEN 1,000 MG/100 ML RTUPB IV SCH ×5 (00:27→23:13)
[2019-07-21] MEDS: FENTANYL CITRATE INJ/PF 100 MCG/2 ML AMPUL IV PRN ×2 (01:22→06:12)
[2019-07-21] MEDS: INSULIN LISPRO 100 UNIT/ML 3 ML VIAL SUBCUT SCH ×6 (02:47→21:47)
[2019-07-21] MEDS: METHOCARBAMOL INJ/PF 1000 MG/10 ML SDV IV SCH ×4 (02:59→20:32)
[2019-07-21] MEDS: PIPERACILLIN SODIUM/TAZOBACTAM 3.375 GM in NORMAL SALINE 100 ML IV SCH ×4 (03:06→20:32)
[2019-07-21 04:22] LABS: ABSOLUTE LYMPHOCYTES (AUTO) 0.5 10^3/uL (0.5-4.7); ABSOLUTE MONOCYTES (AUTO) 0.6 10^3/uL (0.1-1.4); ABSOLUTE NEUT (AUTO) 6.6 10^3/uL (1.7-8.2); BASOPHILS % (AUTO) 0.2 % (0-2); HEMATOCRIT 38.1 % (37.9-51.0); LYMPHOCYTES % (AUTO) 6.6 % (13-45); MEAN CORPUSCULAR HEMOGLOBIN 31.2 pg (27.0-33.4); MEAN CORPUSCULAR HGB CONC 35.1 g/dL (32.0-36.0); MEAN CORPUSCULAR VOLUME 89 fl (80-97); MONOCYTES % (AUTO) 7.8 % (3-13); RED BLOOD COUNT 4.28 10^6/uL (4.35-5.55); RED CELL DISTRIBUTION WIDTH 13.2 % (11.5-14.0); SEGMENTED NEUTROPHILS % (AUTO) 85.4 % (42-78); TOTAL CELLS COUNTED % (AUTO) 100 %; WHITE BLOOD COUNT 7.7 10^3/uL (4.0-10.5)
[2019-07-21 05:03] LABS: ALBUMIN 2.5 g/dL (3.5-5.0); ALKALINE PHOSPHATASE 66 U/L (38-126); ANION GAP 6 (5-19); ASPARTATE AMINO TRANSFERASE 31 U/L (17-59); BILIRUBIN,DIRECT 1.1 mg/dL (0.0-0.4); BLOOD UREA NITROGEN 19 mg/dL (7-20); CALCIUM 8.2 mg/dL (8.4-10.2); CARBON DIOXIDE 26 mmol/L (22-30); CHLORIDE 107 mmol/L (98-107); GLUCOSE 207 mg/dL (75-110); PHOSPHORUS 2.5 mg/dL (2.5-4.5); POTASSIUM 3.8 mmol/L (3.6-5.0); TOTAL PROTEIN 4.7 g/dL (6.3-8.2)
[2019-07-21 05:12] LABS: HEMOGLOBIN 13.4 g/dL (13.5-17.0); PLATELET COUNT 91 10^3/uL (150-450)
[2019-07-21] MEDS: BENZOCAINE/MENTHOL SORE THROAT LOZENGE BUCCAL PRN (07:29)
--- NOTE | 2019-07-21 07:34 | PDOC PROGRESS REPORT ---
Subjective Progress Note for:: 07/21/19 Subjective:: c/o incisional pain Reason For Visit: PNEUMOPERITONEUM,ACUTE PERFORATED GANGRENOUS Physical Exam Vital Signs: Temp Pulse Resp BP Pulse Ox 98.5 F 75 17 159/84 H 93 07/21/19 03:52 07/20/19 22:00 07/21/19 06:19 07/21/19 06:19 07/21/19 06:19 Intake & Output 07/20/19 07/21/19 07/22/19 06:59 06:59 06:59 Intake Total 23346 2800 Output Total 76230 2585 400 Balance 2074 215 -400 Weight 116.2 kg 120.3 kg General appearance: PRESENT: mild distress Head exam: PRESENT: normocephalic Eye exam: PRESENT: EOMI Ear exam: PRESENT: normal external ear exam Mouth exam: PRESENT: moist Neck exam: PRESENT: full ROM Respiratory exam: PRESENT: clear to auscultation emerson Cardiovascular exam: PRESENT: RRR Pulses: PRESENT: normal radial pulses, normal femoral pulses Vascular exam: PRESENT: normal capillary refill GI/Abdominal exam: PRESENT: other - soft, vac in place Rectal exam: PRESENT: deferred Extremities exam: PRESENT: full ROM Musculoskeletal exam: PRESENT: full ROM Neurological exam: PRESENT: alert, awake, oriented to person, oriented to place Psychiatric exam: PRESENT: appropriate affect Skin exam: PRESENT: dry Results Laboratory Results: 07/21/19 03:48 07/21/19 03:48 07/20/19 07/20/19 07/20/19 07:10 10:02 10:02 WBC RBC Hgb Hct MCV MCH MCHC RDW Plt Count Seg Neutrophils % Sodium Potassium Chloride Carbon Dioxide Anion Gap BUN Creatinine Est GFR ( Amer) Glucose Lactic Acid 2.9 H 2.9 H Calcium Phosphorus Magnesium Total Bilirubin GGT 244 H AST Alkaline Phosphatase Ammonia Total Protein Albumin 07/20/19 07/21/19 07/21/19 14:19 03:48 03:48 WBC 7.7 RBC 4.28 L Hgb 13.4 L D Hct 38.1 MCV 89 MCH 31.2 MCHC 35.1 RDW 13.2 Plt Count 91 L Seg Neutrophils % 85.4 H Sodium 139.4 Potassium 3.8 Chloride 107 Carbon Dioxide 26 Anion Gap 6 BUN 19 Creatinine 1.27 H Est GFR ( Amer) > 60 Glucose 207 H Lactic Acid 3.3 H Calcium 8.2 L Phosphorus 2.5 Magnesium 1.8 Total Bilirubin 2.0 H GGT AST 31 Alkaline Phosphatase 66 Ammonia Total Protein 4.7 L Albumin 2.5 L 07/21/19 03:48 WBC RBC Hgb Hct MCV MCH MCHC RDW Plt Count Seg Neutrophils % Sodium Potassium Chloride Carbon Dioxide Anion Gap BUN Creatinine Est GFR ( Amer) Glucose Lactic Acid Calcium Phosphorus Magnesium Total Bilirubin GGT AST Alkaline Phosphatase Ammonia 13.8 Total Protein Albumin 07/20/19 14:19 Troponin I < 0.012 Impressions: Abdomen/Pelvis CT 07/20/19 00:00 IMPRESSION: 1. Pericolonic inflammation and edema in the right lower quadrant and pneumoperitoneum. Findings may reflect either a ruptured appendix or perforated diverticulitis. 2. Scattered colonic diverticulosis. 3. Hepatosplenomegaly. 4. Bilateral fat-containing inguinal hernias. These critical findings were discussed with Dr. Jordon Zarco on 07/20/2019 at 12:12 AM central time. Assessment & Plan - Time Time Spent with patient: 25-34 minutes - Plan Summary Plan Summary: s/p perfed appendcits open appy with drains, wound vac, wound open ng in place plan tx to flooor, out of bed awaitng return of bowel function cont iv abx.
[2019-07-21 07:53] LABS: APPEARANCE,URINE CLEAR; BILIRUBIN,URINE NEGATIVE (NEGATIVE); COLOR,URINE YELLOW; GLUCOSE, URINE 50 mg/dL (NEGATIVE); KETONES,URINE NEGATIVE (NEGATIVE); LEUKOCYTE ESTERASE,URINE NEGATIVE (NEGATIVE); NITRITE,URINE NEGATIVE (NEGATIVE); PROTEIN,URINE 30 mg/dL (NEGATIVE); URINE SPECIFIC GRAVITY 1.024; UROBILINOGEN,URINE NEGATIVE mg/dL (<2.0)
[2019-07-21] MEDS: ONDANSETRON 4 MG TAB.RAPDIS PO PRN (10:52)
[2019-07-21] MEDS: ENOXAPARIN SODIUM INJ 40 MG/0.4 ML DISP.SYRIN SUBCUT SCH (10:54)
[2019-07-21] MEDS: RINGERS SOLUTION,LACTATED 1,000 ML IV PRN ×2 (13:22→20:30)
[2019-07-21] MEDS: HYDROMORPHONE HCL INJ/PF 2 MG/ML AMPULE IV PRN ×3 (15:31→23:11)
[2019-07-22] MEDS: RINGERS SOLUTION,LACTATED 1,000 ML IV PRN ×2 (02:20→18:23)
[2019-07-22] MEDS: INSULIN LISPRO 100 UNIT/ML 3 ML VIAL SUBCUT SCH ×5 (02:20→21:29)
[2019-07-22] MEDS: METHOCARBAMOL INJ/PF 1000 MG/10 ML SDV IV SCH ×4 (02:23→20:31)
[2019-07-22] MEDS: PIPERACILLIN SODIUM/TAZOBACTAM 3.375 GM in NORMAL SALINE 100 ML IV SCH ×4 (02:25→20:31)
[2019-07-22] MEDS: HYDROMORPHONE HCL INJ/PF 2 MG/ML AMPULE IV PRN ×2 (05:34→18:23)
[2019-07-22] MEDS: ACETAMINOPHEN 1,000 MG/100 ML RTUPB IV SCH ×4 (05:34→23:53)
[2019-07-22 06:00] LABS: ABSOLUTE EOSINOPHILS # (AUTO) 0.1 10^3/uL (0.0-0.6); ABSOLUTE LYMPHOCYTES (AUTO) 0.9 10^3/uL (0.5-4.7); ABSOLUTE MONOCYTES (AUTO) 0.8 10^3/uL (0.1-1.4); ABSOLUTE NEUT (AUTO) 9.1 10^3/uL (1.7-8.2); BASOPHILS % (AUTO) 0.1 % (0-2); EOSINOPHILS % (AUTO) 0.9 % (0-6); HEMATOCRIT 39.8 % (37.9-51.0); HEMOGLOBIN 13.9 g/dL (13.5-17.0); LYMPHOCYTES % (AUTO) 8.3 % (13-45); MEAN CORPUSCULAR HEMOGLOBIN 31.6 pg (27.0-33.4); MEAN CORPUSCULAR VOLUME 90 fl (80-97); MONOCYTES % (AUTO) 7.4 % (3-13); PLATELET COUNT 124 10^3/uL (150-450); RED BLOOD COUNT 4.41 10^6/uL (4.35-5.55); RED CELL DISTRIBUTION WIDTH 13.1 % (11.5-14.0); SEGMENTED NEUTROPHILS % (AUTO) 83.3 % (42-78); TOTAL CELLS COUNTED % (AUTO) 100 %; WHITE BLOOD COUNT 10.9 10^3/uL (4.0-10.5)
[2019-07-22 06:24] LABS: ANION GAP 8 (5-19); BLOOD UREA NITROGEN 28 mg/dL (7-20); CALCIUM 8.5 mg/dL (8.4-10.2); CARBON DIOXIDE 27 mmol/L (22-30); CHLORIDE 109 mmol/L (98-107); GLUCOSE 190 mg/dL (75-110)
[2019-07-22] MEDS: BENZOCAINE/MENTHOL SORE THROAT LOZENGE BUCCAL PRN (06:57)
--- NOTE | 2019-07-22 09:48 | PDOC PROGRESS REPORT ---
Subjective Progress Note for:: 07/22/19 Subjective:: Patient sitting in chair, wants NG tube out. Minimal flatus. Voiding without Denise catheter. Pain is managed Reason For Visit: PNEUMOPERITONEUM,ACUTE PERFORATED GANGRENOUS Physical Exam Vital Signs: Temp Pulse Resp BP Pulse Ox 97.5 F 69 18 151/80 H 91 L 07/22/19 04:00 07/22/19 04:00 07/22/19 04:00 07/22/19 04:00 07/22/19 04:00 Intake & Output 07/21/19 07/22/19 07/23/19 06:59 06:59 06:59 Intake Total 3900 3125 Output Total 2585 3000 90 Balance 1315 125 -90 Weight 120.3 kg 120.1 kg General appearance: PRESENT: no acute distress GI/Abdominal exam: PRESENT: other - Abdomen examined. Wound VAC in place. Serosanguineous output from left pelvic drain greater than right. Neurological exam: PRESENT: oriented to person, oriented to place, oriented to time, oriented to situation Results Laboratory Results: 07/22/19 05:42 07/22/19 05:42 07/22/19 07/22/19 05:42 05:42 WBC 10.9 H RBC 4.41 Hgb 13.9 Hct 39.8 MCV 90 MCH 31.6 MCHC 35.0 RDW 13.1 Plt Count 124 L Seg Neutrophils % 83.3 H Sodium 143.9 Potassium 4.0 Chloride 109 H Carbon Dioxide 27 Anion Gap 8 BUN 28 H Creatinine 1.18 Est GFR ( Amer) > 60 Glucose 190 H Calcium 8.5 07/19/19 23:08 Blood Blood Culture - Final Clostridium Sp.not Perfringens No Aerobic Organisms 07/20/19 14:19 Troponin I < 0.012 Impressions: Abdomen/Pelvis CT 07/20/19 00:00 IMPRESSION: 1. Pericolonic inflammation and edema in the right lower quadrant and pneumoperitoneum. Findings may reflect either a ruptured appendix or perforated diverticulitis. 2. Scattered colonic diverticulosis. 3. Hepatosplenomegaly. 4. Bilateral fat-containing inguinal hernias. These critical findings were discussed with Dr. Jordon Zarco on 07/20/2019 at 12:12 AM central time. Assessment & Plan - Diagnosis (1) Perforated abdominal viscus Is this a current diagnosis for this admission?: Yes Plan: Impression: Patient is a second postoperative day following laparoscopic conversion to open appendectomy through a midline incision, for acute gangrenous appendicitis with perforation, and peritonitis, doing well, no fever, normal white blood cell count on intravenous Zosyn slow return of bowel function. Recommendations: 1. Discontinue nasogastric tube-done 2. Encouraged less dependency on narcotics, encouraged nonnarcotic pain management; will add Toradol to regimen. 3. 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 4. We will start surgical sips of clear liquid, advance slowly as tolerated. 5. Anticipate right pelvic drain removal tomorrow. - Time Time Spent with patient: 15-24 minutes
[2019-07-22] MEDS: KETOROLAC TROMETHAMINE INJ/PF 30 MG/1 ML SDV IV PRN ×2 (10:59→17:08)
[2019-07-22] MEDS: ENOXAPARIN SODIUM INJ 40 MG/0.4 ML DISP.SYRIN SUBCUT SCH (11:00)
[2019-07-22] MEDS ORDERED: DEXTROSE 50%-WATER SYRINGE 25 GM/50 ML DOSE IV PRN (16:30)
[2019-07-22] MEDS ORDERED: GLUCAGON,HUMAN RECOMB 1 MG INJ IM PRN (16:30)
[2019-07-22] MEDS ORDERED: DEXTROSE 40% GEL 15 GM TUBE PO PRN (16:30)
[2019-07-22] MEDS ORDERED: DEXTROSE 50%-WATER SYRINGE 12.5 GM/25 ML DOSE IV PRN (16:30)
[2019-07-22] MEDS ORDERED: DEXTROSE 40% GEL 15 GM TUBE X 2 PO PRN (16:30)
[2019-07-22] MEDS ORDERED: INSULIN LISPRO 100 UNIT/ML 3 ML VIAL SUBCUT SCH ×2 (22:00)
[2019-07-23] MEDS: METHOCARBAMOL INJ/PF 1000 MG/10 ML SDV IV SCH (03:42)
[2019-07-23] MEDS: PIPERACILLIN SODIUM/TAZOBACTAM 3.375 GM in NORMAL SALINE 100 ML IV SCH ×4 (03:42→21:59)
[2019-07-23 04:47] LABS: HEMATOCRIT 37.7 % (37.9-51.0); HEMOGLOBIN 13.1 g/dL (13.5-17.0); MEAN CORPUSCULAR HEMOGLOBIN 31.3 pg (27.0-33.4); MEAN CORPUSCULAR HGB CONC 34.7 g/dL (32.0-36.0); MEAN CORPUSCULAR VOLUME 90 fl (80-97); PLATELET COUNT 147 10^3/uL (150-450); RED BLOOD COUNT 4.19 10^6/uL (4.35-5.55); RED CELL DISTRIBUTION WIDTH 12.9 % (11.5-14.0); WHITE BLOOD COUNT 11.7 10^3/uL (4.0-10.5)
[2019-07-23 05:05] LABS: ANION GAP 8 (5-19); BLOOD UREA NITROGEN 27 mg/dL (7-20); CALCIUM 8.3 mg/dL (8.4-10.2); CARBON DIOXIDE 28 mmol/L (22-30); CHLORIDE 103 mmol/L (98-107); GLUCOSE 252 mg/dL (75-110); POTASSIUM 3.3 mmol/L (3.6-5.0)
[2019-07-23 05:34] LABS: ABSOLUTE LYMPHOCYTES# (MANUAL) 2.2 10^3/uL (0.5-4.7); ABSOLUTE MONOCYTES # (MANUAL) 0.5 10^3/uL (0.1-1.4); BASOPHILS % (MANUAL) 0 % (0-2); EOSINOPHILS % (MANUAL) 4 % (0-6); LYMPHOCYTES % (MANUAL) 18 % (13-45); MONOCYTES % (MANUAL) 4 % (3-13); NUCLEATED RED BLOOD CELLS 3 /100 WBC (0); SEGMENTED NEUTROPHILS % (MAN) 73 % (42-78); TOTAL CELLS COUNTED 100
[2019-07-23 05:35] LABS: PLATELET COMMENT DECREASED; RBC MORPHOLOGY COMMENT NORMO-CYTIC/CHROMIC
[2019-07-23] MEDS: ONDANSETRON 4 MG TAB.RAPDIS PO PRN (07:21)
[2019-07-23] MEDS: KETOROLAC TROMETHAMINE INJ/PF 30 MG/1 ML SDV IV PRN ×2 (07:21→16:33)
[2019-07-23] MEDS: INSULIN LISPRO 100 UNIT/ML 3 ML VIAL SUBCUT SCH ×4 (07:59→22:10)
--- NOTE | 2019-07-23 09:10 | PDOC PROGRESS REPORT ---
Subjective Progress Note for:: 07/23/19 Reason For Visit: PNEUMOPERITONEUM,ACUTE PERFORATED GANGRENOUS Patient is sitting in chair; has lots of gas; some belching; minimal flatus. Voiding without Denise. Pain reasonably well managed Physical Exam Vital Signs: Temp Pulse Resp BP Pulse Ox 97.6 F 58 L 19 154/78 H 92 07/23/19 07:41 07/23/19 07:41 07/23/19 07:41 07/23/19 07:41 07/23/19 07:41 Intake & Output 07/22/19 07/23/19 07/24/19 06:59 06:59 06:59 Intake Total 3125 1700 1000 Output Total 3000 1545 50 Balance 125 155 950 Weight 120.1 kg 120 kg General appearance: PRESENT: mild distress GI/Abdominal exam: PRESENT: other - Distended; wound VAC in position; right drain removed uneventfully; left drain left in place Results Laboratory Results: 07/23/19 03:56 07/23/19 03:56 07/23/19 07/23/19 03:56 03:56 WBC 11.7 H RBC 4.19 L Hgb 13.1 L Hct 37.7 L MCV 90 MCH 31.3 MCHC 34.7 RDW 12.9 Plt Count 147 L Seg Neutrophils % Not Reportable Sodium 138.8 Potassium 3.3 L Chloride 103 Carbon Dioxide 28 Anion Gap 8 BUN 27 H Creatinine 1.21 Est GFR ( Amer) > 60 Glucose 252 H Calcium 8.3 L 07/20/19 14:19 Troponin I < 0.012 Impressions: Abdomen/Pelvis CT 07/20/19 00:00 IMPRESSION: 1. Pericolonic inflammation and edema in the right lower quadrant and pneumoperitoneum. Findings may reflect either a ruptured appendix or perforated diverticulitis. 2. Scattered colonic diverticulosis. 3. Hepatosplenomegaly. 4. Bilateral fat-containing inguinal hernias. These critical findings were discussed with Dr. Jorodn Zarco on 07/20/2019 at 12:12 AM central time. Assessment & Plan - Diagnosis (1) Perforated abdominal viscus Is this a current diagnosis for this admission?: Yes Plan: Impression: Postoperative ileus otherwise uneventful course. Hypokalemia; hyperglycemia Recommendations: 1. We will hold off on clear liquids until more reliable flatus 2. We will replace potassium with IV riders 3. Will ensure patient is on a sliding scale insulin coverage 4. Continue intravenous antibiotics - Time Time Spent with patient: 15-24 minutes
[2019-07-23] MEDS: ENOXAPARIN SODIUM INJ 40 MG/0.4 ML DISP.SYRIN SUBCUT SCH (09:23)
[2019-07-23] MEDS: POTASSI CL 20 MEQ/50 ML RIDER 20 MEQ/50 ML RTUPB IV SCH ×3 (10:17→13:59)
[2019-07-24] MEDS: PIPERACILLIN SODIUM/TAZOBACTAM 3.375 GM in NORMAL SALINE 100 ML IV SCH ×4 (03:18→21:58)
[2019-07-24] MEDS: KETOROLAC TROMETHAMINE INJ/PF 30 MG/1 ML SDV IV PRN ×4 (04:32→23:17)
[2019-07-24 06:59] LABS: HEMATOCRIT 37.1 % (37.9-51.0); MEAN CORPUSCULAR HEMOGLOBIN 31.1 pg (27.0-33.4); MEAN CORPUSCULAR HGB CONC 34.9 g/dL (32.0-36.0); MEAN CORPUSCULAR VOLUME 89 fl (80-97); PLATELET COUNT 185 10^3/uL (150-450); RED BLOOD COUNT 4.16 10^6/uL (4.35-5.55); RED CELL DISTRIBUTION WIDTH 12.8 % (11.5-14.0); WHITE BLOOD COUNT 12.7 10^3/uL (4.0-10.5)
[2019-07-24 07:20] LABS: ANION GAP 11 (5-19); BLOOD UREA NITROGEN 20 mg/dL (7-20); CALCIUM 8.4 mg/dL (8.4-10.2); CARBON DIOXIDE 23 mmol/L (22-30); CHLORIDE 105 mmol/L (98-107); GLUCOSE 261 mg/dL (75-110); POTASSIUM 3.5 mmol/L (3.6-5.0)
[2019-07-24 07:28] LABS: ABSOLUTE LYMPHOCYTES# (MANUAL) 1.8 10^3/uL (0.5-4.7); ABSOLUTE MONOCYTES # (MANUAL) 1.3 10^3/uL (0.1-1.4); BAND NEUTROPHILS % (MANUAL) 5 % (3-5); BASOPHILS % (MANUAL) 0 % (0-2); EOSINOPHILS % (MANUAL) 4 % (0-6); LYMPHOCYTES % (MANUAL) 9 % (13-45); METAMYELOCYTES % (MANUAL) 1 % (0-1); MONOCYTES % (MANUAL) 10 % (3-13); NUCLEATED RED BLOOD CELLS 1 /100 WBC (0); SEGMENTED NEUTROPHILS % (MAN) 66 % (42-78); TOTAL CELLS COUNTED 100
[2019-07-24 07:29] LABS: POLYCHROMASIA SLIGHT
[2019-07-24 07:30] LABS: PLATELET COMMENT ADEQUATE
[2019-07-24] MEDS: INSULIN LISPRO 100 UNIT/ML 3 ML VIAL SUBCUT SCH ×4 (08:11→21:59)
[2019-07-24] MEDS: ENOXAPARIN SODIUM INJ 40 MG/0.4 ML DISP.SYRIN SUBCUT SCH (09:17)
--- NOTE | 2019-07-24 11:36 | PDOC PROGRESS REPORT ---
Subjective Progress Note for:: 07/24/19 Subjective:: less incisional pains Had flatus and small BM Reason For Visit: PNEUMOPERITONEUM,ACUTE PERFORATED GANGRENOUS Physical Exam Vital Signs: Temp Pulse Resp BP Pulse Ox 97.9 F 58 L 17 161/88 H 91 L 07/24/19 07:30 07/24/19 07:30 07/24/19 07:30 07/24/19 07:30 07/24/19 07:30 Intake & Output 07/23/19 07/24/19 07/25/19 06:59 06:59 06:59 Intake Total 1700 2221 150 Output Total 1545 790 80 Balance 155 1431 70 Weight 120 kg 120 kg Exam: Abdominal incision looks relatively clean after wound vac removed. Vac re-nehal lied SPIKE about 120 ccs past 24 hrs with serosanguinous fluid Results Laboratory Results: 07/24/19 06:29 07/24/19 06:31 07/24/19 07/24/19 06:29 06:31 WBC 12.7 H RBC 4.16 L Hgb 13.0 L Hct 37.1 L MCV 89 MCH 31.1 MCHC 34.9 RDW 12.8 Plt Count 185 Seg Neutrophils % Not Reportable Sodium 138.5 Potassium 3.5 L Chloride 105 Carbon Dioxide 23 Anion Gap 11 BUN 20 Creatinine 1.23 Est GFR ( Amer) > 60 Glucose 261 H Calcium 8.4 07/20/19 14:19 Troponin I < 0.012 Impressions: Abdomen/Pelvis CT 07/20/19 00:00 IMPRESSION: 1. Pericolonic inflammation and edema in the right lower quadrant and pneumoperitoneum. Findings may reflect either a ruptured appendix or perforated diverticulitis. 2. Scattered colonic diverticulosis. 3. Hepatosplenomegaly. 4. Bilateral fat-containing inguinal hernias. These critical findings were discussed with Dr. Jordon Zarco on 07/20/2019 at 12:12 AM central time. Assessment & Plan - Diagnosis (1) Perforated abdominal viscus Is this a current diagnosis for this admission?: Yes (2) Type 2 diabetes mellitus Qualifiers: Diabetes mellitus extermination inspector insulin use: without half-way use Diabetes mellitus complication status: without complication Qualified Code(s): E11.9 - Type 2 diabetes mellitus without complications Is this a current diagnosis for this admission?: Yes - Time Time Spent with patient: 15-24 minutes - Inpatient Certification Medical Necessity: Need for IV Antibiotics - Plan Summary Plan Summary: POD # 4 for Open Perf appendicitis operation Plans: Continue IV antibiotics Continue wound vac and re-evaluate wound in 48-72 hrs for delayed primary repair Increase diet Hospitalist consult for hypertension
--- NOTE | 2019-07-24 16:26 | PDOC CONSULTATION ---
Consultation Consult Date: 07/24/19 Attending physician:: ZAINAB ULLOA Provider Consulted: SHEKHAR VÁZQUEZ JR Consult reason:: Medical management History of Present Illness Admission Date/PCP: 07/20/19 01:31 GORDO GANDHI History of Present Illness: GRAZYNA PEREZ is a 58 year old male admitted to the hospital on July 20 for right lower quadrant abdominal pain.. T scan done in the emergency room showed a possible perforated appendix versus right colon diverticulitis and perforation. Patient was seen by surgery IV antibiotics were ordered Patient went to the OR on 07/20/2019 where a diagnostic laparoscopic laparotomy open appendectomy and application of wound VAC was performed by Dr. Mccain. Patient tolerated procedure well to the recovery room good condition. Postoperatively the patient was seen by the family practice md Dr. Dunbar who felt that the patient needed to be managed for peritonitis and diabetes with hyperglycemia patient remained in the ICU however when he was stable was transferred to the floor. Today is postop day #4 and we were consulted for "hypertension" . Patient's other medical condition includes diabetes Past Medical History Cardiac Medical History: Reports: None, Congestive Heart Failure, Hypertension, Peripheral Vascular Disease Denies: Coronary Artery Disease, Myocardial Infarction Pulmonary Medical History: Reports: Other Denies: Asthma, Bronchitis, Chronic Obstructive Pulmonary Disease (COPD), Intubation, Pneumonia, Respiratory Failure EENT Medical History: Reports: None Neurological Medical History: Reports: None Denies: Seizures Endocrine Medical History: Reports: Diabetes Mellitus Type 2, Other - Thyroid cysts, hemorrhagic Renal/ Medical History: Reports: None Malignancy Medical History: Reports: None GI Medical History: Reports: Other - MEJIA. Had been a part of experimental study. Not ETOH related Denies: Crohn's Disease, Diverticulitis, Hiatal Hernia, Peptic Ulcer Disease, Ulcerative Colitis Musculoskeltal Medical History: Denies: Arthritis Psychiatric Medical History: Reports: None Denies: Alcohol Dependency, Substance Abuse, Tobacco Dependency Traumatic Medical History: Denies: None Hematology: Denies: None, Anemia Infectious Medical History: Denies: None Past Surgical History Past Surgical History: Reports: Appendectomy - this admission, Other - Thyroid cyst removl Social History Lives with: Spouse/Significant other Smoking Status: Never Smoker Electronic Cigarette use?: No Frequency of Alcohol Use: Rare Hx Recreational Drug Use: No Drugs: None Hx Prescription Drug Abuse: No - Advance Directive Resuscitation Status: Full Code Family History Family History: CAD - Father had NE at age of 30 Parental Family History Reviewed: No Children Family History Reviewed: No Sibling(s) Family History Reviewed.: No Medication/Allergy Home Medications: Fenofibrate 54mg Tab 54 mg PO DAILY 07/20/19 Glimepiride [Amaryl 4 mg Tablet] 4 mg PO DAILY 07/20/19 Metformin HCl [Metformin HCl ER] 2,000 mg PO DAILY 07/20/19 Sildenafil Citrate [Revatio 20 mg Tablet] 60 mg PO .1 HOUR AC SEX PRN 07/20/19 Allergies/Adverse Reactions: No Known Allergies Allergy (Verified 10/11/18 08:34) Review of Systems Constitutional: ABSENT: chills, fever(s), headache(s), weight gain, weight loss Respiratory: PRESENT: as per HPI Gastrointestinal: ABSENT: abdominal pain, constipation, diarrhea, hematemesis, hematochezia, nausea, vomiting Neurological: ABSENT: abnormal gait, abnormal speech, confusion, dizziness, focal weakness, syncope Psychiatric: ABSENT: anxiety, depression, homidical ideation, suicidal ideation Physical Exam Vital Signs: Temp Pulse Resp BP Pulse Ox 98.7 F 66 18 155/79 H 95 07/24/19 11:22 07/24/19 11:22 07/24/19 11:22 07/24/19 11:22 07/24/19 11:22 Intake & Output 07/23/19 07/24/19 07/25/19 06:59 06:59 06:59 Intake Total 1700 2221 610 Output Total 1545 790 80 Balance 155 1431 530 Weight 120 kg 120 kg General appearance: PRESENT: no acute distress, other - Sitting up in the chair talking in no distress Respiratory exam: PRESENT: clear to auscultation emerson. ABSENT: rales, rhonchi, wheezes Cardiovascular exam: PRESENT: RRR. ABSENT: diastolic murmur, rubs, systolic murmur GI/Abdominal exam: PRESENT: other - Deferred to general surgery Neurological exam: PRESENT: alert, awake, oriented to person, oriented to place, oriented to time, oriented to situation, CN II-XII grossly intact. ABSENT: m otor sensory deficit Psychiatric exam: PRESENT: appropriate affect, normal mood, other - His is in the room during the interview. ABSENT: homicidal ideation, suicidal ideation Results Laboratory Results: 07/24/19 06:29 07/24/19 06:31 07/24/19 07/24/19 06:29 06:31 WBC 12.7 H RBC 4.16 L Hgb 13.0 L Hct 37.1 L MCV 89 MCH 31.1 MCHC 34.9 RDW 12.8 Plt Count 185 Seg Neutrophils % Not Reportable Sodium 138.5 Potassium 3.5 L Chloride 105 Carbon Dioxide 23 Anion Gap 11 BUN 20 Creatinine 1.23 Est GFR ( Amer) > 60 Glucose 261 H Calcium 8.4 07/20/19 01:45 Peritoneal Gram Stain - Final 07/20/19 14:19 Troponin I < 0.012 Impressions: Abdomen/Pelvis CT 07/20/19 00:00 IMPRESSION: 1. Pericolonic inflammation and edema in the right lower quadrant and pneumoperitoneum. Findings may reflect either a ruptured appendix or perforated diverticulitis. 2. Scattered colonic diverticulosis. 3. Hepatosplenomegaly. 4. Bilateral fat-containing inguinal hernias. These critical findings were discussed with Dr. Jordon Zarco on 07/20/2019 at 12:12 AM central time. Assessment and Plan - Diagnosis (1) Acute peritonitis Is this a current diagnosis for this admission?: Yes (2) Difficult airway for intubation Qualifiers: Encounter type: initial encounter Qualified Code(s): T88.4XXA - Failed or difficult intubation, initial encounter Is this a current diagnosis for this admission?: Yes (3) Family history of premature CAD Is this a current diagnosis for this admission?: Yes (4) Hyperglycemia due to type 2 diabetes mellitus Qualifiers: Diabetes mellitus group home insulin use: without group home use Qualified Code(s): E11.65 - Type 2 diabetes mellitus with hyperglycemia Is this a current diagnosis for this admission?: Yes (5) Postoperative abdominal pain Is this a current diagnosis for this admission?: Yes (6) Type 2 diabetes mellitus Qualifiers: Diabetes mellitus parts counterman insulin use: without parts counterman use Diabetes mellitus complication status: without complication Qualified Code(s): E11.9 - Type 2 diabetes mellitus without complications Is this a current diagnosis for this admission?: Yes (7) Hypertension Is this a current diagnosis for this admission?: Yes - Plan Summary Summary: 07/24/2019 Patient showed me a list in his iPhone of his blood pressures that were randomly taking over the last year. His blood pressure has been averaging about 130/80, he was on no blood pressure medicine prior to coming to the hospital. , Amaryl 4 mg daily and metformin 2000 thousand milligrams daily, extended release. She does have a strong family history of heart disease. View of his blood pressures while in the hospital show all of them to be elevated to the point needing medication. Certainly this could be as a result of his peritonitis, abdominal pain, being postop. However I think in light of his strong family history of coronary disease he would benefit from a beta cierra added to his daily regimen. I have ordered Coreg 3.125 mg twice daily as a starting dose. Also ordered a fasting lipid panel for the morning. Will probably need to be put on a statin as well. Have also recommended that the patient see a discharge with a stress test and echo to be performed as an outpatient. Patient and his seems satisfied - Time Time Spent with patient: 35 or more minutes
[2019-07-24] MEDS: CARVEDILOL 3.125 MG TABLET PO SCH (21:57)
[2019-07-25] MEDS: PIPERACILLIN SODIUM/TAZOBACTAM 3.375 GM in NORMAL SALINE 100 ML IV SCH ×3 (03:17→14:30)
[2019-07-25 07:39] LABS: HEMATOCRIT 34.2 % (37.9-51.0); MEAN CORPUSCULAR HEMOGLOBIN 31.1 pg (27.0-33.4); MEAN CORPUSCULAR HGB CONC 35.1 g/dL (32.0-36.0); MEAN CORPUSCULAR VOLUME 89 fl (80-97); PLATELET COUNT 202 10^3/uL (150-450); RED BLOOD COUNT 3.86 10^6/uL (4.35-5.55); RED CELL DISTRIBUTION WIDTH 12.7 % (11.5-14.0); WHITE BLOOD COUNT 11.9 10^3/uL (4.0-10.5)
[2019-07-25 08:05] LABS: ANION GAP 8 (5-19); BLOOD UREA NITROGEN 17 mg/dL (7-20); CALCIUM 8.5 mg/dL (8.4-10.2); CARBON DIOXIDE 24 mmol/L (22-30); CHLORIDE 102 mmol/L (98-107); CHOLESTEROL 118.27 mg/dL (0-200); GLUCOSE 250 mg/dL (75-110); POTASSIUM 3.7 mmol/L (3.6-5.0); TRIGLYCERIDES 219 mg/dL (<150)
[2019-07-25 08:09] LABS: ABSOLUTE LYMPHOCYTES# (MANUAL) 1.7 10^3/uL (0.5-4.7); ABSOLUTE MONOCYTES # (MANUAL) 0.5 10^3/uL (0.1-1.4); BAND NEUTROPHILS % (MANUAL) 3 % (3-5); BASOPHILS % (MANUAL) 1 % (0-2); EOSINOPHILS % (MANUAL) 5 % (0-6); LYMPHOCYTES % (MANUAL) 13 % (13-45); METAMYELOCYTES % (MANUAL) 2 % (0-1); MONOCYTES % (MANUAL) 4 % (3-13); SEGMENTED NEUTROPHILS % (MAN) 71 % (42-78); TOTAL CELLS COUNTED 100
[2019-07-25 08:10] LABS: ANISOCYTOSIS SLIGHT; PLATELET COMMENT ADEQUATE; POLYCHROMASIA 1+; TOXIC GRANULATION 1+
[2019-07-25 08:16] LABS: DIRECT LDL 70 mg/dL (<100)
[2019-07-25 08:19] LABS: VLDL CHOLESTEROL 43.8 mg/dL (10-31)
[2019-07-25] MEDS: INSULIN LISPRO 100 UNIT/ML 3 ML VIAL SUBCUT SCH ×4 (08:24→22:15)
[2019-07-25] MEDS: METFORMIN HCL 500 MG TABLET PO SCH ×2 (08:24→17:09)
--- NOTE | 2019-07-25 09:29 | PDOC PROGRESS REPORT ---
Subjective Progress Note for:: 07/25/19 Subjective:: More comfortable. Tolerated soft diet Reason For Visit: PNEUMOPERITONEUM,ACUTE PERFORATED GANGRENOUS Physical Exam Vital Signs: Temp Pulse Resp BP Pulse Ox 98.2 F 99 16 166/79 H 96 07/25/19 07:44 07/25/19 07:44 07/25/19 07:44 07/25/19 07:44 07/25/19 07:44 Intake & Output 07/24/19 07/25/19 07/26/19 06:59 06:59 06:59 Intake Total 2221 1610 Output Total 790 1400 Balance 1431 210 Weight 120 kg 125.8 kg Exam: Incisional wound VAC in place. Abdomen is soft and nontender Results Laboratory Results: 07/25/19 06:35 07/25/19 06:35 07/25/19 07/25/19 06:35 06:35 WBC 11.9 H RBC 3.86 L Hgb 12.0 L Hct 34.2 L MCV 89 MCH 31.1 MCHC 35.1 RDW 12.7 Plt Count 202 Seg Neutrophils % Not Reportable Sodium 134.3 L Potassium 3.7 Chloride 102 Carbon Dioxide 24 Anion Gap 8 BUN 17 Creatinine 1.19 Est GFR ( Amer) > 60 Glucose 250 H Calcium 8.5 Triglycerides 219 H Cholesterol 118.27 LDL Cholesterol Direct 70 VLDL Cholesterol 43.8 H HDL Cholesterol 19 L 07/20/19 01:32 Blood Blood Culture - Final NO GROWTH IN 5 DAYS 07/20/19 01:45 Peritoneal Gram Stain - Final 07/20/19 14:19 Troponin I < 0.012 Impressions: Abdomen/Pelvis CT 07/20/19 00:00 IMPRESSION: 1. Pericolonic inflammation and edema in the right lower quadrant and pneumoperitoneum. Findings may reflect either a ruptured appendix or perforated diverticulitis. 2. Scattered colonic diverticulosis. 3. Hepatosplenomegaly. 4. Bilateral fat-containing inguinal hernias. These critical findings were discussed with Dr. Jordon Zarco on 07/20/2019 at 12:12 AM central time. Assessment & Plan - Diagnosis (1) Perforated abdominal viscus Is this a current diagnosis for this admission?: Yes (2) Type 2 diabetes mellitus Qualifiers: Diabetes mellitus exterminator termite insulin use: without exterminator termite use Diabetes mellitus complication status: without complication Qualified Code(s): E11.9 - Type 2 diabetes mellitus without complications Is this a current diagnosis for this admission?: Yes - Time Time Spent with patient: 15-24 minutes - Inpatient Certification Medical Necessity: Need for IV Antibiotics - Plan Summary Plan Summary: 58-year-old male fifth day post open appendectomy for perforated appendicitis. Wound VAC is in place. Patient tolerating soft diet Plans: To have a wound VAC change in a.m. and reevaluate wound whether to do delayed primary closure versus continuing the wound VAC at home. Continue antibiotics for the next 24 to 48 hours
[2019-07-25] MEDS: ENOXAPARIN SODIUM INJ 40 MG/0.4 ML DISP.SYRIN SUBCUT SCH (09:56)
[2019-07-25] MEDS: CARVEDILOL 3.125 MG TABLET PO SCH (09:56)
[2019-07-25] MEDS: GLIMEPIRIDE 4 MG TABLET PO SCH (09:56)
[2019-07-25] MEDS: KETOROLAC TROMETHAMINE INJ/PF 30 MG/1 ML SDV IV PRN ×2 (09:58→20:35)
[2019-07-25] MEDS ORDERED: GLUCAGON,HUMAN RECOMB 1 MG INJ IM PRN (13:31)
[2019-07-25] MEDS ORDERED: DEXTROSE 50%-WATER 25 GM/50 ML DISP.SYRIN IV PRN ×2 (13:31)
--- NOTE | 2019-07-25 13:56 | PDOC PROGRESS REPORT ---
Subjective Progress Note for:: 07/25/19 Subjective:: Patient feels well today. Still having some abdominal pain from his surgery. Reviewed patient's diary of blood pressure measurements at home which shows that his BP ranges from a systolic of 118-140s for the most part. Patient confirmed that he does not take any blood pressure medications as per his primary care physician. Reason For Visit: PNEUMOPERITONEUM,ACUTE PERFORATED GANGRENOUS Physical Exam Vital Signs: Temp Pulse Resp BP Pulse Ox 98.2 F 99 16 166/79 H 96 07/25/19 07:44 07/25/19 07:44 07/25/19 07:44 07/25/19 07:44 07/25/19 07:44 Intake & Output 07/24/19 07/25/19 07/26/19 06:59 06:59 06:59 Intake Total 2221 1610 800 Output Total 790 1400 Balance 1431 210 800 Weight 120 kg 125.8 kg General appearance: PRESENT: no acute distress, cooperative Head exam: PRESENT: normocephalic Neck exam: ABSENT: JVD Respiratory exam: PRESENT: clear to auscultation emerson, symmetrical, unlabored. ABSENT: tachypnea, wheezes Cardiovascular exam: PRESENT: RRR, +S1, +S2. ABSENT: tachycardia GI/Abdominal exam: PRESENT: distended, soft, tenderness, other - Clean dressing abdominal binder. ABSENT: rigid Neurological exam: PRESENT: alert, awake, oriented to person, oriented to place, oriented to time, oriented to situation Results Laboratory Results: 07/25/19 06:35 07/25/19 06:35 07/25/19 07/25/19 06:35 06:35 WBC 11.9 H RBC 3.86 L Hgb 12.0 L Hct 34.2 L MCV 89 MCH 31.1 MCHC 35.1 RDW 12.7 Plt Count 202 Seg Neutrophils % Not Reportable Sodium 134.3 L Potassium 3.7 Chloride 102 Carbon Dioxide 24 Anion Gap 8 BUN 17 Creatinine 1.19 Est GFR ( Amer) > 60 Glucose 250 H Calcium 8.5 Triglycerides 219 H Cholesterol 118.27 LDL Cholesterol Direct 70 VLDL Cholesterol 43.8 H HDL Cholesterol 19 L 07/20/19 01:45 Peritoneal Gram Stain - Final 07/20/19 01:32 Blood Blood Culture - Final NO GROWTH IN 5 DAYS 07/20/19 14:19 Troponin I < 0.012 Impressions: Abdomen/Pelvis CT 07/20/19 00:00 IMPRESSION: 1. Pericolonic inflammation and edema in the right lower quadrant and pneumoperitoneum. Findings may reflect either a ruptured appendix or perforated diverticulitis. 2. Scattered colonic diverticulosis. 3. Hepatosplenomegaly. 4. Bilateral fat-containing inguinal hernias. These critical findings were discussed with Dr. Jordon Zarco on 07/20/2019 at 12:12 AM central time. Assessment and Plan - Diagnosis (1) Hypertension Is this a current diagnosis for this admission?: Yes Plan: Patient is elevated blood pressure may be in part secondary to his abdominal pain from the recent surgical procedure. On his phone diary, his BP has been mostly in the 120s to 130s systolic with a range of 118-140s. Patient does not take any blood pressure medications. I would recommend adequate pain control and I have started patient on small dose of amlodipine 5 mg daily. Monitor blood pressure response. I have stopped Coreg as patient's heart rate would likely not tolerate. (2) Type 2 diabetes mellitus Qualifiers: Diabetes mellitus long term care phlebotomist insulin use: without long term care phlebotomist use Diabetes mellitus complication status: without complication Qualified Code(s): E11.9 - Type 2 diabetes mellitus without complications Is this a current diagnosis for this admission?: Yes Plan: Patient still hyperglycemic on Accu-Cheks. However patient just received his first doses of glimepiride and metformin, during this admission, today. Prior to starting this oral anti-glycemic agents, patient was requiring about 16 to 20 units of insulin via sliding scale daily. Patient does have a fair control of his blood sugars on his home regimen of metformin 1000mg twice daily and glimepiride 4 mg daily with A1c of 7.7. His current hypoglycemia likely due to withholding his anti-glycemic agents and partly stress response from recent surgery. -Since his oral anti-glycemic's were just restarted, I will just opt to monitor blood sugar trend for today to decide whether he will need some standing doses of insulin at least while inpatient. - Plan Summary Summary: Of note, after interview with patient, I realized that this is a patient of Dr. Olivas. As such, I will sign off and have placed a consult for Dr. Olivas to continue to follow. - Time Time Spent with patient: 15-24 minutes
[2019-07-25] MEDS: AMLODIPINE BESYLATE 5 MG TABLET PO SCH (14:30)
[2019-07-25] MEDS ORDERED: INSULIN LISPRO 100 UNIT/ML 3 ML VIAL SUBCUT SCH (16:00)
[2019-07-25] MEDS: LEVOFLOXACIN 500 MG/D5W RTU 500 MG/100 ML RTUPB IV SCH (19:37)
[2019-07-25] MEDS ORDERED: INSULIN GLARGINE,HUM.REC.ANLOG 1,000 UNIT/10 ML VIAL SUBCUT SCH (22:00)
[2019-07-26] MEDS: KETOROLAC TROMETHAMINE INJ/PF 30 MG/1 ML SDV IV PRN ×2 (03:23→09:15)
[2019-07-26 06:51] LABS: ABSOLUTE BASOPHILS # (AUTO) 0.1 10^3/uL (0.0-0.2); ABSOLUTE EOSINOPHILS # (AUTO) 0.4 10^3/uL (0.0-0.6); ABSOLUTE LYMPHOCYTES (AUTO) 1.5 10^3/uL (0.5-4.7); ABSOLUTE MONOCYTES (AUTO) 0.8 10^3/uL (0.1-1.4); ABSOLUTE NEUT (AUTO) 8.6 10^3/uL (1.7-8.2); BASOPHILS % (AUTO) 0.7 % (0-2); EOSINOPHILS % (AUTO) 3.2 % (0-6); HEMATOCRIT 36.6 % (37.9-51.0); HEMOGLOBIN 12.6 g/dL (13.5-17.0); LYMPHOCYTES % (AUTO) 13.5 % (13-45); MEAN CORPUSCULAR HEMOGLOBIN 30.5 pg (27.0-33.4); MEAN CORPUSCULAR HGB CONC 34.4 g/dL (32.0-36.0); MEAN CORPUSCULAR VOLUME 89 fl (80-97); PLATELET COUNT 242 10^3/uL (150-450); RED BLOOD COUNT 4.13 10^6/uL (4.35-5.55); RED CELL DISTRIBUTION WIDTH 12.6 % (11.5-14.0); SEGMENTED NEUTROPHILS % (AUTO) 75.6 % (42-78); TOTAL CELLS COUNTED % (AUTO) 100 %; WHITE BLOOD COUNT 11.3 10^3/uL (4.0-10.5)
[2019-07-26 07:09] LABS: ANION GAP 10 (5-19); BLOOD UREA NITROGEN 14 mg/dL (7-20); CALCIUM 8.5 mg/dL (8.4-10.2); CARBON DIOXIDE 23 mmol/L (22-30); CHLORIDE 105 mmol/L (98-107); GLUCOSE 172 mg/dL (75-110); POTASSIUM 3.9 mmol/L (3.6-5.0)
--- NOTE | 2019-07-26 08:35 | PDOC PROGRESS REPORT ---
Subjective Progress Note for:: 07/26/19 Subjective:: Patient denied any fever or chills. No chest pain of difficulty with breathing. No nausea or vomiting. Abdominal surgical site pain fairly controlled with vac off. Schedule for wound closure later today. Remain on IV Levofloxacin. Reason For Visit: PNEUMOPERITONEUM,ACUTE PERFORATED GANGRENOUS Physical Exam Vital Signs: Temp Pulse Resp BP Pulse Ox 99.3 F 69 18 159/74 H 95 07/25/19 20:20 07/25/19 20:20 07/25/19 20:20 07/25/19 20:20 07/25/19 20:20 Intake & Output 07/25/19 07/26/19 07/27/19 06:59 06:59 06:59 Intake Total 1610 1100 Output Total 1400 1070 Balance 210 30 Weight 125.8 kg 120.6 kg General appearance: PRESENT: no acute distress, obese Head exam: PRESENT: atraumatic, normocephalic Eye exam: PRESENT: conjunctiva pink. ABSENT: scleral icterus Ear exam: PRESENT: normal external ear exam Mouth exam: PRESENT: moist Respiratory exam: PRESENT: clear to auscultation emerson Cardiovascular exam: PRESENT: RRR. ABSENT: diastolic murmur, rubs, systolic murmur GI/Abdominal exam: PRESENT: normal bowel sounds, soft, other - guard band in use. ABSENT: distended, guarding, mass, organolmegaly, rebound, tenderness Extremities exam: ABSENT: pedal edema Musculoskeletal exam: PRESENT: normal inspection Neurological exam: PRESENT: alert, awake, oriented to person, oriented to place, oriented to time, oriented to situation, CN II-XII grossly intact. ABSENT: motor sensory deficit Psychiatric exam: PRESENT: appropriate affect, normal mood. ABSENT: homicidal ideation, suicidal ideation Skin exam: PRESENT: dry, warm, other - surgical site dressing satisfactory. SPIKE dainage system in situ. Results Laboratory Results: 07/26/19 05:51 07/26/19 05:51 07/26/19 07/26/19 05:51 05:51 WBC 11.3 H RBC 4.13 L Hgb 12.6 L Hct 36.6 L MCV 89 MCH 30.5 MCHC 34.4 RDW 12.6 Plt Count 242 Seg Neutrophils % 75.6 Sodium 138.0 Potassium 3.9 Chloride 105 Carbon Dioxide 23 Anion Gap 10 BUN 14 Creatinine 1.15 Est GFR ( Amer) > 60 Glucose 172 H Calcium 8.5 07/20/19 01:45 Peritoneal Gram Stain - Final 07/20/19 01:32 Blood Blood Culture - Final NO GROWTH IN 5 DAYS 07/20/19 14:19 Troponin I < 0.012 Impressions: Abdomen/Pelvis CT 07/20/19 00:00 IMPRESSION: 1. Pericolonic inflammation and edema in the right lower quadrant and pneumoperitoneum. Findings may reflect either a ruptured appendix or perforated diverticulitis. 2. Scattered colonic diverticulosis. 3. Hepatosplenomegaly. 4. Bilateral fat-containing inguinal hernias. These critical findings were discussed with Dr. Jordon Zarco on 07/20/2019 at 12:12 AM central time. Assessment & Plan - Diagnosis (1) Perforated abdominal viscus Is this a current diagnosis for this admission?: Yes Plan: Post appendectomy day # 6 and doing fine postop surgically. (2) Hypertension Qualifiers: Hypertension type: essential hypertension Qualified Code(s): I10 - Essential (primary) hypertension Is this a current diagnosis for this admission?: Yes Plan: Continue on Norvasc therapy. Possible contribution of pain and fluid therapy. He may benefit from SERENA-I or ARB in view of his diabetes mellitus if he is in need of terminal gauger anti HTN usage is deem necessary. (3) Type 2 diabetes mellitus Qualifiers: Diabetes mellitus terminal gauger insulin use: without retirement use Diabetes mellitus complication status: without complication Qualified Code(s): E11.9 - Type 2 diabetes mellitus without complications Is this a current diagnosis for this admission?: Yes Plan: Continue current medication management. - Time Time Spent with patient: 25-34 minutes Level of Care: IMCU Medications reviewed and adjusted accordingly: Yes Anticipated discharge: Home with Homehealth Within: Other - Inpatient Certification Based on my medical assessment, after consideration of the patient's comorbidities, presenting symptoms, or acuity I expect that the services needed warrant INPATIENT care.: Yes I certify that my determination is in accordance with my understanding of Medicare's requirements for reasonable and necessary INPATIENT services [42 CFR 412.3e].: Yes Medical Necessity: Significant Comorbidiites Make Outpatient Treatment Too Risky, Need Close Monitoring Due to Risk of Patient Decompensation, Need For Continuous Telemetry Monitoring, Need for Surgery, Risk of Complication if Not Cared For in Hospital, Risk of Diagnosis Which Will Require Inpatient Eval/Care/Monitoring Post Hospital Care: D/C [employer] Documentation - Plan Summary Plan Summary: Maintain on all current medication management.
[2019-07-26] MEDS: INSULIN LISPRO 100 UNIT/ML 3 ML VIAL SUBCUT SCH ×4 (08:44→22:49)
[2019-07-26] MEDS: GLIMEPIRIDE 4 MG TABLET PO SCH (09:15)
[2019-07-26] MEDS: ENOXAPARIN SODIUM INJ 40 MG/0.4 ML DISP.SYRIN SUBCUT SCH (09:15)
[2019-07-26] MEDS: METFORMIN HCL 500 MG TABLET PO SCH ×2 (09:15→17:51)
[2019-07-26] MEDS: AMLODIPINE BESYLATE 5 MG TABLET PO SCH (09:15)
--- NOTE | 2019-07-26 11:22 | PDOC PROGRESS REPORT ---
Subjective Progress Note for:: 07/26/19 Reason For Visit: PNEUMOPERITONEUM,ACUTE PERFORATED GANGRENOUS Physical Exam Vital Signs: Temp Pulse Resp BP Pulse Ox 98.5 F 62 17 169/83 H 98 07/26/19 08:22 07/26/19 08:22 07/26/19 08:22 07/26/19 08:22 07/26/19 08:22 Intake & Output 07/25/19 07/26/19 07/27/19 06:59 06:59 06:59 Intake Total 1610 1100 Output Total 1400 1070 Balance 210 30 Weight 125.8 kg 120.6 kg Results Laboratory Results: 07/26/19 05:51 07/26/19 05:51 07/26/19 07/26/19 05:51 05:51 WBC 11.3 H RBC 4.13 L Hgb 12.6 L Hct 36.6 L MCV 89 MCH 30.5 MCHC 34.4 RDW 12.6 Plt Count 242 Seg Neutrophils % 75.6 Sodium 138.0 Potassium 3.9 Chloride 105 Carbon Dioxide 23 Anion Gap 10 BUN 14 Creatinine 1.15 Est GFR ( Amer) > 60 Glucose 172 H Calcium 8.5 07/20/19 01:45 Peritoneal Gram Stain - Final 07/20/19 01:32 Blood Blood Culture - Final NO GROWTH IN 5 DAYS 07/20/19 14:19 Troponin I < 0.012 Impressions: Abdomen/Pelvis CT 07/20/19 00:00 IMPRESSION: 1. Pericolonic inflammation and edema in the right lower quadrant and pneumoperitoneum. Findings may reflect either a ruptured appendix or perforated diverticulitis. 2. Scattered colonic diverticulosis. 3. Hepatosplenomegaly. 4. Bilateral fat-containing inguinal hernias. These critical findings were discussed with Dr. Jordon Zarco on 07/20/2019 at 12:12 AM central time. Assessment & Plan - Diagnosis (1) Acute perforated appendicitis Is this a current diagnosis for this admission?: Yes - Time Time Spent with patient: Less than 15 minutes - Plan Summary Plan Summary: There is a 58-year-old male status post laparotomy for acute perforated appendicitis. The patient has a left lower quadrant intra-abdominal drain in place. It is minimally productive of serous fluid. Discontinue SPIKE drain today. The patient has a wound VAC on his midline. I have removed the wound VAC today. The Tegaderm/occlusive dressing is causing blisters of the skin. I will remove the wound VAC completely. Do not replace wound VAC. I have discussed partial closure of the wound with the patient. He is agreeable to partial closure with dressing changes. I will plan to perform this at the bedside later today. Ambulate, out of bed. Diet as tolerated. Aggressive pulmonary toilet. Continue antibiotics for now.
[2019-07-26] MEDS: IBUPROFEN 800 MG TABLET PO SCH ×2 (11:59→17:51)
[2019-07-26] MEDS: HYDROCODONE/ACETAMINOPHEN 10-325 MG TABLET PO PRN ×3 (13:51→22:49)
--- NOTE | 2019-07-26 15:23 | Operative Report ---
Nonrecallable Operative Report DATE OF SURGERY: 07/26/19 PREOPERATIVE DIAGNOSIS: Open abdominal wound, postop day #6 POSTOPERATIVE DIAGNOSIS: Same as above. OPERATION: Delayed primary closure of midline abdominal wound. SURGEON: DC RAWLS ANESTHESIA: Local TISSUE REMOVED OR ALTERED: None COMPLICATIONS: None apparent ESTIMATED BLOOD LOSS: Minimal PROCEDURE: Procedure in detail: After informed consent was obtained from the patient and his , he was laid in the supine position in the hospital room. The midline incision was prepped and draped in a normal sterile fashion. 2-0 nylon was then used to suture the abdominal skin closed. This was done in simple interrupted fashion, with some space between the sutures. 4 sutures were used in total. After the sutures were brought together and tied, the open areas were packed with a small amount of damp gauze. A dressing was placed, and the procedure was concluded. All sponge, instrument, and needle counts were correct. Condition: Stable.
[2019-07-26] MEDS: LEVOFLOXACIN 500 MG/D5W RTU 500 MG/100 ML RTUPB IV SCH (17:51)
[2019-07-26] MEDS: FAMOTIDINE 20 MG TABLET PO SCH (22:49)
[2019-07-27] MEDS: HYDROCODONE/ACETAMINOPHEN 10-325 MG TABLET PO PRN ×2 (05:30→16:41)
[2019-07-27] MEDS: IBUPROFEN 800 MG TABLET PO SCH ×3 (08:20→16:40)
[2019-07-27] MEDS: METFORMIN HCL 500 MG TABLET PO SCH ×2 (08:21→16:41)
[2019-07-27] MEDS: INSULIN LISPRO 100 UNIT/ML 3 ML VIAL SUBCUT SCH ×3 (08:21→16:41)
--- NOTE | 2019-07-27 08:44 | PDOC PROGRESS REPORT ---
Subjective Progress Note for:: 07/27/19 Subjective:: Patient is more engaging this AM awaiting discharge home as notified by the surgical team. He denied fever or chills. No chest pain or difficulty with breathing. No nausea or vomiting. His wound closure was completed yesterday with application of four sutures as per his narration. Reason For Visit: PNEUMOPERITONEUM,ACUTE PERFORATED GANGRENOUS Physical Exam Vital Signs: Temp Pulse Resp BP Pulse Ox 98.1 F 66 17 154/80 H 96 07/26/19 16:00 07/26/19 16:00 07/26/19 16:00 07/26/19 16:00 07/26/19 16:00 Intake & Output 07/26/19 07/27/19 07/28/19 06:59 06:59 06:59 Intake Total 1100 900 Output Total 1070 3415 Balance 30 -2515 Weight 120.6 kg Physical Exam: General appearance: PRESENT: no acute distress, obese Head exam: PRESENT: atraumatic, normocephalic Eye exam: PRESENT: conjunctiva pink. ABSENT: pallor, scleral icterus Ear exam: PRESENT: normal external ear exam Mouth exam: PRESENT: moist Respiratory exam: PRESENT: clear to auscultation emerson Cardiovascular exam: PRESENT: RRR. ABSENT: diastolic murmur, rubs, systolic murmur GI/Abdominal exam: PRESENT: normal bowel sounds, soft, other - guard band in use. ABSENT: distended, guarding, mass, organomegaly, rebound, tenderness Extremities exam: ABSENT: pedal edema Musculoskeletal exam: PRESENT: normal inspection Neurological exam: PRESENT: alert, awake, oriented to person, oriented to place, oriented to time, oriented to situation, CN II-XII grossly intact. ABSENT: motor sensory deficit Psychiatric exam: PRESENT: appropriate affect, normal mood. ABSENT: homicidal ideation, suicidal ideation Skin exam: PRESENT: dry, warm, other - surgical site dressing satisfactory. Results Laboratory Results: 07/26/19 05:51 07/26/19 05:51 07/20/19 01:45 Peritoneal Gram Stain - Final 07/20/19 01:45 Peritoneal Wound Culture - Final Escherichia Coli Enterococcus Avium Parvimonas(Peptostrep) Micra Bacteroides Fragilis Group 07/20/19 14:19 Troponin I < 0.012 Impressions: Abdomen/Pelvis CT 07/20/19 00:00 IMPRESSION: 1. Pericolonic inflammation and edema in the right lower quadrant and pneumoperitoneum. Findings may reflect either a ruptured appendix or perforated diverticulitis. 2. Scattered colonic diverticulosis. 3. Hepatosplenomegaly. 4. Bilateral fat-containing inguinal hernias. These critical findings were discussed with Dr. Jordon Zarco on 07/20/2019 at 12:12 AM central time. Assessment & Plan - Diagnosis (1) Perforated abdominal viscus Is this a current diagnosis for this admission?: Yes Plan: Continue o oral Levofloxacin 500 mg p.o daily x 7 days upon discharge. Agreed with d/c home today with [facility] services for wound care and monitoring of his blood pressure. (2) Hypertension Qualifiers: Hypertension type: essential hypertension Qualified Code(s): I10 - Essential (primary) hypertension Is this a current diagnosis for this admission?: Yes Plan: D/C Amlodipine. Start on Losartan 50 mg po daily. (3) Type 2 diabetes mellitus Qualifiers: Diabetes mellitus paid internship insulin use: without fci use Diabetes mellitus complication status: without complication Qualified Code(s): E11.9 - Type 2 diabetes mellitus without complications Is this a current diagnosis for this admission?: Yes Plan: Maintain on his preadmission medication management. - Time Time Spent with patient: 25-34 minutes Level of Care: IMCU Medications reviewed and adjusted accordingly: Yes Anticipated discharge: Home with Homehealth Within: Other - Inpatient Certification Based on my medical assessment, after consideration of the patient's comorbidities, presenting symptoms, or acuity I expect that the services needed warrant INPATIENT care.: Yes I certify that my determination is in accordance with my understanding of Medicare's requirements for reasonable and necessary INPATIENT services [42 CFR 412.3e].: Yes Medical Necessity: Significant Comorbidiites Make Outpatient Treatment Too Risky, Need Close Monitoring Due to Risk of Patient Decompensation, Need For Continuous Telemetry Monitoring, Risk of Complication if Not Cared For in Hospital, Risk of Diagnosis Which Will Require Inpatient Eval/Care/Monitoring Post Hospital Care: D/C [employer] Tender Documentation - Plan Summary Plan Summary: Agreed with d/c home today. Follow up in the office as instructed upon discharge.
[2019-07-27] MEDS: ENOXAPARIN SODIUM INJ 40 MG/0.4 ML DISP.SYRIN SUBCUT SCH (09:33)
[2019-07-27] MEDS: FAMOTIDINE 20 MG TABLET PO SCH (09:33)
[2019-07-27] MEDS: GLIMEPIRIDE 4 MG TABLET PO SCH (09:33)
[2019-07-27] MEDS ORDERED: LOSARTAN POTASSIUM 50 MG TABLET PO SCH (10:00)
--- NOTE | 2019-07-27 18:08 | PDOC DISCHARGE SUMMARY ---
General - Admit/Disc Date/PCP Admission Date/Primary Care Provider: 07/20/19 01:31 GORDO GANDHI Discharge Date: 07/27/19 - Discharge Diagnosis Final Diagnosis: Acute gangrenous perforated appendicitis Hypertension Diabetes mellitus type 2 - Assessment Summary: Of note, after interview with patient, I realized that this is a patient of Dr. Gandhi. As such, I will sign off and have placed a consult for Dr. Gadnhi to continue to follow. This is a 58-year-old male with 3 days of abdominal pains and went to ED on 07/20/2019 with severe abdominal pains with nausea. Patient emergently taken to the OR on 07/20/[address] Mccain where an open appendectomy was performed after failed attempted laparoscopic procedure. Drains were placed and the wound was left open and a wound VAC applied. Patient also has an NG tube. The NG tube was removed on 07/22/2019 together with 1 of the drains. Meantime he he was continue the wound VAC. He was also continued on IV Levaquin. He was seen on 07/24/2019 by hospitalist for hypertension diabetes mellitus and was placed on losartan. He was then seen on 07/26/2019 where delayed partial closure of the abdominal wound was done by Dr. Waterman at bedside. The remaining drain was also removed. Patient able to tolerate regular diet and the white count has been trending down. He was then discharged to improve on 07/27/2019. Prescription for Levaquin and losartan was given by Dr. Armando Juan. Patient to be followed up in the office of Dr. Armando nava on August 07 and to be followed up in the surgical clinic in 2 weeks for removal of the abdominal wound closure sutures. Time the is a nurse is going to put a wet-to-dry dressing over the partially opened abdominal wound on a daily basis. Patient discharged on . - Additional Information Resuscitation Status: Full Code Referrals: ZAINAB ULLOA MD [[facility]] - (follow up 2 weeks) GORDO GANDHI MD [Primary Care Provider] - 08/07/19 10:00 am Prescriptions: Levofloxacin [Levaquin 500 mg Tablet] 500 mg PO DAILY #7 tablet Losartan Potassium 50 mg PO DAILY #30 tablet Home Medications: Fenofibrate 54mg Tab 54 mg PO DAILY 07/20/19 Glimepiride [Amaryl 4 mg Tablet] 4 mg PO DAILY 07/20/19 Metformin HCl [Metformin HCl ER] 2,000 mg PO DAILY 07/20/19 Sildenafil Citrate [Revatio 20 mg Tablet] 60 mg PO .1 HOUR AC SEX PRN 07/20/19 Levofloxacin [Levaquin 500 mg Tablet] 500 mg PO DAILY #7 tablet 07/27/19 Losartan Potassium 50 mg PO DAILY #30 tablet 07/27/19 History of Present Illiness History of Present Illness: GRAZYNA PEREZ is a 58 year old male Physical Exam Vital Signs: Temp Pulse Resp BP Pulse Ox 98.1 F 63 16 145/83 H 97 07/27/19 12:59 07/27/19 12:59 07/27/19 12:59 07/27/19 12:59 07/27/19 12:59 Intake & Output 07/26/19 07/27/19 07/28/19 06:59 06:59 06:59 Intake Total 1001 420 0070 Output Total 1070 3415 580 Balance 30 -2515 690 Weight 120.6 kg Results Laboratory Results: WBC 11.3 10^3/uL (4.0-10.5) H 07/26/19 05:51 RBC 4.13 10^6/uL (4.35-5.55) L 07/26/19 05:51 Hgb 12.6 g/dL (13.5-17.0) L 07/26/19 05:51 Hct 36.6 % (37.9-51.0) L 07/26/19 05:51 MCV 89 fl (80-97) 07/26/19 05:51 MCH 30.5 pg (27.0-33.4) 07/26/19 05:51 MCHC 34.4 g/dL (32.0-36.0) 07/26/19 05:51 RDW 12.6 % (11.5-14.0) 07/26/19 05:51 Plt Count 242 10^3/uL (150-450) 07/26/19 05:51 Lymph % (Auto) 13.5 % (13-45) 07/26/19 05:51 Esmeralda % (Auto) 7.0 % (3-13) 07/26/19 05:51 Eos % (Auto) 3.2 % (0-6) 07/26/19 05:51 Baso % (Auto) 0.7 % (0-2) 07/26/19 05:51 Absolute Neuts (auto) 8.6 10^3/uL (1.7-8.2) H 07/26/19 05:51 Absolute Lymphs (auto) 1.5 10^3/uL (0.5-4.7) 07/26/19 05:51 Absolute Monos (auto) 0.8 10^3/uL (0.1-1.4) 07/26/19 05:51 Absolute Eos (auto) 0.4 10^3/uL (0.0-0.6) 07/26/19 05:51 Absolute Basos (auto) 0.1 10^3/uL (0.0-0.2) 07/26/19 05:51 Total Counted 100 07/25/19 06:35 Seg Neutrophils % 75.6 % (42-78) 07/26/19 05:51 Seg Neuts % (Manual) 71 % (42-78) 07/25/19 06:35 Band Neutrophils % 3 % (3-5) 07/25/19 06:35 Lymphocytes % (Manual) 13 % (13-45) 07/25/19 06:35 Atypical Lymphs % 1 % (0) 07/25/19 06:35 Monocytes % (Manual) 4 % (3-13) 07/25/19 06:35 Eosinophils % (Manual) 5 % (0-6) 07/25/19 06:35 Basophils % (Manual) 1 % (0-2) 07/25/19 06:35 Metamyelocytes % 2 % (0-1) H 07/25/19 06:35 Abs Neuts (Manual) 9.0 10^3/uL (1.7-8.2) H 07/25/19 06:35 Abs Lymphs (Manual) 1.7 10^3/uL (0.5-4.7) 07/25/19 06:35 Abs Monocytes (Manual) 0.5 10^3/uL (0.1-1.4) 07/25/19 06:35 Absolute Eos (Manual) 0.6 10^3/uL (0.0-0.6) 07/25/19 06:35 Abs Basophils (Manual) 0.1 10^3/uL (0.0-0.2) 07/25/19 06:35 Nucleated RBCs 1 /100 WBC (0) 07/24/19 06:29 Toxic Granulation 1+ 07/25/19 06:35 Platelet Comment ADEQUATE 07/25/19 06:35 Polychromasia 1+ 07/25/19 06:35 Anisocytosis SLIGHT 07/25/19 06:35 RBC Morph Comment NORMO-CYTIC/CHROMIC 07/23/19 03:56 PT 13.7 SEC (11.4-15.4) 07/19/19 23:08 INR 1.05 07/19/19 23:08 APTT 28.5 SEC (23.5-35.8) 07/19/19 23:08 Sodium 138.0 mmol/L (137-145) 07/26/19 05:51 Potassium 3.9 mmol/L (3.6-5.0) 07/26/19 05:51 Chloride 105 mmol/L (98-107) 07/26/19 05:51 Carbon Dioxide 23 mmol/L (22-30) 07/26/19 05:51 Anion Gap 10 (5-19) 07/26/19 05:51 BUN 14 mg/dL (7-20) 07/26/19 05:51 Creatinine 1.15 mg/dL (0.52-1.25) 07/26/19 05:51 Est GFR ( Amer) > 60 (>60) 07/26/19 05:51 Est GFR (MDRD) Non-Af > 60 (>60) 07/26/19 05:51 Glucose 172 mg/dL (75-110) H 07/26/19 05:51 POC Glucose 151 mg/dL (70-110) H 07/27/19 16:36 Hemoglobin A1c % 7.7 % (4.7-6.0) H 07/25/19 06:35 Lactic Acid 3.3 mmol/L (0.7-2.1) H 07/20/19 14:19 Calcium 8.5 mg/dL (8.4-10.2) 07/26/19 05:51 Phosphorus 2.5 mg/dL (2.5-4.5) 07/21/19 03:48 Magnesium 1.8 mg/dL (1.6-2.3) 07/21/19 03:48 Total Bilirubin 2.0 mg/dL (0.2-1.3) H 07/21/19 03:48 Direct Bilirubin 1.1 mg/dL (0.0-0.4) H 07/21/19 03:48 Neonat Total Bilirubin Not Reportable 07/21/19 03:48 Neonat Direct Bilirubin Not Reportable 07/21/19 03:48 Neonat Indirect Bili Not Reportable 07/21/19 03:48 GGT 244 U/L (8-78) H 07/20/19 10:02 AST 31 U/L (17-59) 07/21/19 03:48 ALT 66 U/L (<50) 07/21/19 03:48 Alkaline Phosphatase 66 U/L (38-126) 07/21/19 03:48 Ammonia 13.8 umol/L (9-33) 07/21/19 03:48 Troponin I < 0.012 ng/mL 07/20/19 14:19 Total Protein 4.7 g/dL (6.3-8.2) L 07/21/19 03:48 Albumin 2.5 g/dL (3.5-5.0) L 07/21/19 03:48 Triglycerides 219 mg/dL (<150) H 07/25/19 06:35 Cholesterol 118.27 mg/dL (0-200) 07/25/19 06:35 LDL Cholesterol Direct 70 mg/dL (<100) 07/25/19 06:35 VLDL Cholesterol 43.8 mg/dL (10-31) H 07/25/19 06:35 HDL Cholesterol 19 mg/dL (>40) L 07/25/19 06:35 Lipase 77.1 U/L (23-300) 07/19/19 23:08 Urine Color YELLOW 07/21/19 07:18 Urine Appearance CLEAR 07/21/19 07:18 Urine pH 5.0 (5.0-9.0) 07/21/19 07:18 Ur Specific [place] 1.024 07/21/19 07:18 Urine Protein 30 mg/dL (NEGATIVE) H 07/21/19 07:18 Urine Glucose (UA) 50 mg/dL (NEGATIVE) H 07/21/19 07:18 Urine Ketones NEGATIVE mg/dL (NEGATIVE) 07/21/19 07:18 Urine Blood MODERATE (NEGATIVE) H 07/21/19 07:18 Urine Nitrite NEGATIVE (NEGATIVE) 07/21/19 07:18 Urine Bilirubin NEGATIVE (NEGATIVE) 07/21/19 07:18 Urine Urobilinogen NEGATIVE mg/dL (<2.0) 07/21/19 07:18 Ur Leukocyte Esterase NEGATIVE (NEGATIVE) 07/21/19 07:18 Urine WBC (Auto) 4 /HPF 07/21/19 07:18 Urine RBC (Auto) 2 /HPF 07/21/19 07:18 Squamous Epi Cells Auto <1 /HPF 07/21/19 07:18 Urine Ascorbic Acid NEGATIVE (NEGATIVE) 07/21/19 07:18 Blood Type O POSITIVE 07/20/19 01:32 Antibody Screen NEGATIVE 07/20/19 01:32 07/20/19 14:19 Troponin I < 0.012 Impressions: Abdomen/Pelvis CT 07/20/19 00:00 IMPRESSION: 1. Pericolonic inflammation and edema in the right lower quadrant and pneumoperitoneum. Findings may reflect either a ruptured appendix or perforated diverticulitis. 2. Scattered colonic diverticulosis. 3. Hepatosplenomegaly. 4. Bilateral fat-containing inguinal hernias. These critical findings were discussed with Dr. Jordon Zarco on 07/20/2019 at 12:12 AM central time.
[2019-07-27 18:19] VITALS: BP 159/89
== END 2019-07-27 18:40 | disposition home or self-care (01) | DRG 342 ==
LOC: ER 22:10 → EH 07-20 01:31 → ICU 07-20 06:15 → 3S 07-21 17:40
PROVIDERS: ADMIT Surgery; ATTEND Surgery
PROC: 0WJG4ZZ Inspection of Peritoneal Cavity, Percutaneous Endoscopic Approach (ICD-10-PCS; 2019-07-20)
PROC: 0DTJ0ZZ Resection of Appendix, Open Approach (ICD-10-PCS; principal; 2019-07-20 02:45)
PROC: 0WQF0ZZ Repair Abdominal Wall, Open Approach (ICD-10-PCS; 2019-07-26)
DX: K35.31 Acute appendicitis with localized peritonitis and gangrene, without perforation (principal); K56.7 Ileus, unspecified; E80.6 Other disorders of bilirubin metabolism; E87.6 Hypokalemia; K75.81 Nonalcoholic steatohepatitis (NASH); B96.20 Unspecified Escherichia coli [E. coli] as the cause of diseases classified elsewhere; B95.2 Enterococcus as the cause of diseases classified elsewhere; B96.89 Other specified bacterial agents as the cause of diseases classified elsewhere; K40.20 Bilateral inguinal hernia, without obstruction or gangrene, not specified as recurrent; E86.0 Dehydration; E11.65 Type 2 diabetes mellitus with hyperglycemia; I10 Essential (primary) hypertension; I97.3 Postprocedural hypertension; Y83.8 Other surgical procedures as the cause of abnormal reaction of the patient, or of later complication, without mention of misadventure at the time of the procedure; Y92.230 Patient room in hospital as the place of occurrence of the external cause; Z79.84 Long term (current) use of oral hypoglycemic drugs; Z79.899 Other long term (current) drug therapy; T88.4XXA Failed or difficult intubation, initial encounter
CPT/HCPCS: 00840; 36415; 74177; 80048; 80053; 80061; 80076; 81001; 82140; 82962; 82977; 83036; 83605; 83690; 83735; 84100; 84484; 85025; 85610; 85730; 86850; 86900; 86901; 87040; 87070; 87075; 87077; 87186; 87205; 88304; 93005; 93010; 96361; 96374; 96375; 99291; J0131; J0330; J1100; J1170; J1650; J1815; J1885; J1956; J2250; J2270; J2405; J2543; J2704; J2800; J3010; J3480; J3490; J7030; J7050; J7120; S0119

== ENCOUNTER → 2019-09-29 | Outpatient (CLI) | payer SELFPAY ==
--- NOTE | 2019-09-29 12:19 | RADIOLOGY REPORT (SQ) ---
EXAM DESCRIPTION: CT PELVIS WITHOUT COMPLETED DATE/TIME: 09/29/2019 11:48 am REASON FOR STUDY: RLQ PAIN (R10.11) R10.31 RIGHT LOWER QUADRANT PAIN COMPARISON: None. TECHNIQUE: CT scan of the pelvis performed without intravenous or oral contrast. Images reviewed wi th soft tissue and bone windows. Reconstructed coronal and sagittal MPR images reviewed. All images stored on PACS. All CT scanners at this facility use dose modulation, iterative reconstruction, and/or weight based d osing when appropriate to reduce radiation dose to as low as reasonably achievable (ALARA). [facility]: Dose Right [facility]: CareDose [facility]: Dose Right [facility]: Teradose 4D [facility]: NCLC RADIATION DOSE: CT Rad equipment meets quality standard of care and radiation dose reduction techniq ues were employed. CTDIvol: 17.7 mGy. DLP: 715 mGy-cm. LIMITATIONS: None. FINDINGS: PELVIC BONES: No fracture or osseous lesion. VISUALIZED SPINE: No fracture or malalignment. HIP(S): No acute fracture or dislocation. PELVIC SOFT TISSUES: There is colonic diverticulosis without diverticulitis. In the right lower quadr ant there is a linear hyperdensity at the base of the cecum that could represent the sequela of prior appendectomy. There is mild inflammatory stranding of the pericecal fat without a discernible abnormality of the ad jacent bowel. The urinary bladder is nondistended. The prostate gland is enlarged and it measures 5 x 3.4 cm. Ther e is no pelvic adenopathy, free fluid or mass. The inguinal canals are patulous. EXTRAPELVIC SOFT TISSUES: Stranding centered around the infraumbilical linea alba - correlate for floyd or ventral laparotomy. OTHER: No other finding. IMPRESSION: 1. Mild inflammatory stranding of the pericecal fat without a discernible abnormality of the adjacent bowel. The appendix is surgically absent. 2. Prostatomegaly and colonic diverticulosis. TECHNICAL DOCUMENTATION: JOB ID: [id number] Quality ID # [id number]: Final reports with documentation of one or more dose reduction techniques (e.g., Au tomated exposure control, adjustment of the mA and/or kV according to patient size, use of iterative reconstruction technique) 2010 [employer]- All Rights Reserved Reading location - IP/workstation name: [email or web address]
== END ==
LOC: RAD 10:27
PROVIDERS: ATTEND Surgery
DX: R10.31 Right lower quadrant pain (principal)
CPT/HCPCS: 72192